=== PATIENT | female | born 1970 | race Caucasian/White ===

== ENCOUNTER → 2018-01-27 16:43 | Outpatient (CLI) | payer OTHER, SELFPAY ==
[2018-01-30 09:42] LABS: HPV APTIMA, High Risk Negative (Negative)
== END ==
PROVIDERS: Family Provider Family Medicine; PCP Family Medicine; Referring Provider Nurse Practitioner Women's Health; Visit Provider Nurse Practitioner Women's Health
DX: Z12.4 Encounter for screening for malignant neoplasm of cervix (principal)
CPT/HCPCS: 87624; 88175; G0145

== ENCOUNTER → 2018-03-04 07:00 | Outpatient (CLI) | payer OTHER, SELFPAY ==
--- NOTE | 2018-03-04 07:03 | BI_ITS ---
MAMMOGRAPHY - BILATERAL SCREENING REASON FOR EXAM: Female, 47 years old. Routine annual screening examination. PERTINENT HISTORY: Mother with breast cancer. Aunt with breast cancer. Left breast implant. Removal of the right breast implant. TECHNIQUE: Digital bilateral breast marco (3D mammographic acquisition) in the CC and MLO projections. 2-D mediolateral oblique (MLO) and craniocaudad (CC) views of both breasts were obtained. CAD: Full Field Digital Mammography with Computer Added Detection was performed. COMPARISON: Comparison is made with prior chest examination dated October 02, 2016. FINDINGS: Breast Composition: The breasts are heterogeneously dense, which may obscure small masses. There are no dominant masses or suspicious calcifications. The left breast implant is unremarkable. No other significant abnormalities are identified. There has been no significant change since the prior study. BI/SCREENING MAMM (CAD), BILAT IMPRESSION: Stable bilateral screening mammogram. Stable left breast implant. Yearly follow-up mammogram recommended. (A) ASSESSMENT CATEGORY: BIRADS Category 2: Benign. A letter regarding these results will be sent to the patient by the facility within 30 days. Approximately 10% of breast cancers are not detected by mammography. A normal mammogram should not delay biopsy of a clinically suspicious abnormality. [id number] Electronically Signed: Farhan Luna MD at 10:25 EST Tel [phone], Service support ,
== END ==
PROVIDERS: Family Provider Family Medicine; PCP Family Medicine; Referring Provider Nurse Practitioner Women's Health; Visit Provider Nurse Practitioner Women's Health
DX: Z12.31 Encounter for screening mammogram for malignant neoplasm of breast (principal)
CPT/HCPCS: 77063; 77067

== ENCOUNTER → 2018-06-19 08:34 | Outpatient (CLI) | payer OTHER, SELFPAY ==
[2018-06-17 18:04] VITALS: BMI 31.0
[2018-06-19 09:06] LABS: Absolute Lymphocyte Count 2.53 X10^3/ul (0.83-4.51); Absolute Neutrophil Count 4.2 X10^3/uL (2.0-7.7); Basophil# 0.04 X10^3/uL; Basophil% 0.5 % (0-1); Eosinophil# 0.19 X10^3/uL; Eosinophils% 2.5 % (0-5); Hematocrit 43.6 % (37-47); Lymphocyte # 2.53 X10^3/ul (4.0); Lymphocyte % 33.6 % (19-41); Mean Corp Hgb Conc 32.1 g/gl (32-36); Mean Corpuscular Volume 84.2 fL (81-99); Mean Platelet Vol. 9.5 fl (6.2-12.0); Monocyte# 0.52 X10^3/uL; Monocyte% 6.9 % (0-10); Neutrophil # 4.23 X10^3/uL (2.7-7.7); Neutrophil % 56.2 % (47-70); POSITIVE COUNT NO; POSITIVE DIFFERENTIAL NO; POSITIVE MORPHOLOGY NO; Platelet Count 268 K/mm3 (150-450); RBC Distribution Width CV 14.1 % (11.6-14.6); RBC Distribution Width SD 43.4 fl (35.1-43.9); Red Blood Count 5.18 M/mm3 (4.2-5.4); White Blood Count 7.5 K/mm3 (4.4-11.0)
[2018-06-19 09:40] LABS: ALB/GLOB Ratio 1.1 RATIO (0.9-2.4); AST(SGOT) 20 U/L (15-37); Alanine Aminotransfer ALT/SGPT 35 U/L (13-56); Alkaline Phosphatase 71 U/L (45-117); Anion Gap 5 (5-15); BUN 13 mg/dL (7-18); BUN/Creat Ratio 14.4 RATIO (10-20); Calcium,Total 8.7 mg/dL (8.5-10.1); Chloride 104 mmol/L (98-107); Cholesterol 181 mg/dL (200); EST Glomerular Filtration Rate 71 mL/min (>60); Est Glom Filt Rate - Afr Amer 85 mL/min (>60); Globulin 3.7 g/dL (2.2-4.2); Glucose 99 mg/dL (74-106); High Density Lipoprotein 49 mg/dL; Potassium 4.4 mmol/L (3.5-5.1); Protein, Total 7.7 g/dL (6.4-8.2); Sodium Level 136 mmol/L (136-145); Triglycerides 103 mg/dL; Very Low Density Lipoprotein 21 mg/dL (5-40)
== END ==
PROVIDERS: Family Provider Internal Medicine; PCP Internal Medicine; Referring Provider Internal Medicine; Visit Provider Internal Medicine
DX: I10 Essential (primary) hypertension (principal); R53.81 Other malaise; R53.83 Other fatigue
CPT/HCPCS: 36415; 80053; 80061; 85025

== ENCOUNTER → 2018-06-29 07:59 | Outpatient (CLI) | payer OTHER, SELFPAY ==
[2018-06-17 18:04] VITALS: BMI 31.0
--- NOTE | 2018-06-29 08:04 | US_ITS ---
STUDY: THYROID ULTRASOUND REASON FOR EXAM: Female, 48 years old. Nodule TECHNIQUE: Ultrasound evaluation of the thyroid was performed with real-time and static bach-scale imaging. COMPARISON: 2014 FINDINGS: RIGHT LOBE: The right lobe of the thyroid gland measures 5.4 x 1.4 x 1.4 cm. There is a homogeneous echotexture. There is a new 4 mm solid nodule. LEFT LOBE: The left lobe of the thyroid gland measures 5.0 x 1.6 x 1.6 cm. There is a homogeneous echotexture. There are no demonstrated solid, cystic or complex lesions. ISTHMUS: The isthmus measures 0.5 cm. There is a 1.3 x 0.9 x 0.7 cm isthmus nodule. The regional lymph nodes are normal. US/Thyroid IMPRESSION: New 4 mm solid nodule in the right thyroid lobe. Stable 1.3 cm isthmus nodule Previously noted nodule in the left thyroid lobe not identified Borderline thyromegaly Six-month follow-up recommended to assure stability, however, if there is clinical concern about the new nodule in the right thyroid lobe, a thyroid uptake study could be performed to assess uptake characteristics. Electronically Signed: Pollo Cortes MD at 19:20 EDT , Service support ,
== END ==
PROVIDERS: Family Provider Internal Medicine; PCP Internal Medicine; Referring Provider Internal Medicine; Visit Provider Internal Medicine
DX: E04.1 Nontoxic single thyroid nodule (principal)
CPT/HCPCS: 76536

== ENCOUNTER → 2018-07-03 09:10 | Outpatient (CLI) | payer OTHER, SELFPAY ==
[2018-06-17 18:04] VITALS: BMI 31.0
[2018-07-03 10:56] LABS: T4 Free Direct 1.14 ng/dL (0.76-1.46); Thyroid Stim Hormone (TSH) 1.56 uIU/mL (0.358-3.74)
== END ==
PROVIDERS: Family Provider Internal Medicine; PCP Internal Medicine; Referring Provider Internal Medicine; Visit Provider Internal Medicine
DX: E04.1 Nontoxic single thyroid nodule (principal)
CPT/HCPCS: 36415; 84439; 84443

== ENCOUNTER → 2018-09-25 10:33 | Outpatient (CLI) | payer OTHER, SELFPAY ==
[2018-09-09 17:35] VITALS: BMI 30.9
[2018-09-25 13:05] LABS: Anion Gap 12 (5-15); BUN 21 mg/dL (7-18); BUN/Creat Ratio 21.9 RATIO (10-20); Calcium,Total 9.3 mg/dL (8.5-10.1); Chloride 100 mmol/L (98-107); Creatinine, Serum 0.96 mg/dL (0.55-1.02); EST Glomerular Filtration Rate 66 mL/min (>60); Est Glom Filt Rate - Afr Amer 80 mL/min (>60); Glucose 126 mg/dL (74-106); Sodium Level 138 mmol/L (136-145)
== END ==
PROVIDERS: Family Provider Internal Medicine; PCP Internal Medicine; Visit Provider Internal Medicine
DX: I10 Essential (primary) hypertension (principal)
CPT/HCPCS: 36415; 80048

== ENCOUNTER → 2018-10-09 08:29 | Outpatient (CLI) | payer OTHER, SELFPAY ==
[2018-09-09 17:35] VITALS: BMI 30.9
[2018-10-09 09:23] LABS: Potassium 4.1 mmol/L (3.5-5.1)
== END ==
PROVIDERS: Family Provider Internal Medicine; PCP Internal Medicine; Referring Provider Family Medicine; Visit Provider Family Medicine
DX: E87.6 Hypokalemia (principal)
CPT/HCPCS: 36415; 84132

== ENCOUNTER 2018-12-28 07:47 | Day surgery (SDC) | payer OTHER, SELFPAY ==
[2018-12-07 08:08] VITALS: BMI 30.9
[2018-12-16 16:34] VITALS: BMI 30.9
[2018-12-28 08:08] VITALS: BP 138/74; PULSE 61; RESP 16; TEMP 37.1; O2SAT 99; BMI 29.7
[2018-12-28] MEDS: Lactated Ringers 1,000 ML 100 ML IV (08:26)
[2018-12-28 08:35] LABS: Internal QC Validated? YES +Cl - CLEAR BKGD
[2018-12-28 08:40] LABS: Pregnancy, Serum, hCG Quali. NEGATIVE Negative
--- NOTE | 2018-12-28 08:48 | HP.PCM_ITS ---
History of Present Illness Date of Admission: 12/28/18 The patient is a 48 year old F presents for screening colonoscopy. Patient had a colonoscopy 8 years ago which was negative per patient. Patient's father was diagnosed with colon cancer at age 48 and patient's sister had a polyp at age 35. Patient denies any abdominal pain nausea vomiting or reflux. Patient does have bowel movements daily denies any blood. Past Medical/Surgical History - Planned Operation Planned Operative Procedure/s: COLONOSCOPY Date of Operative Procedure: 12/28/18 Permit Signed: Yes S.O.S: No Is This Patient Having a Total Joint: No - Previous Hospitalizations/Surgeries HX Hospitalizations: No HX of Surgeries: GALLBLADDER. BREAST AUGMENTATION Any Problems With Anesthesia: No You/Your Family Experience Fever (Hyperthermia) With Anes: No Cholinesterase deficiency: No - Cardiovascular Hx Chest Pain within Last 2 months: No Hx of Irregular Heartbeat and/or Afib: No Hx Heart Attack: No Hx Congestive Heart Failure: No Hx Rheumatic Fever: No Hx Hypertension: Yes - ON MED, WHITE COAT SYN. Hx Internal Defibrillator: No Hx Pacemaker: No Hx Cardiac Catheterization: No Hx Cardiac Surgery/Stents/Etc.: No Hx Stress Test: Yes - STRESS ECHO 06/2016 HX Edema: No Hx Pain in Legs when Walking/Leg Cramps: No - Respiratory Chronic Cough: No HX of Shortness of Breath: No Hoarseness: No Hx Chronic Obstructive Pulmonary Disease (COPD): No Hx Asthma: No Hx Emphysema: No Hx Sleep Apnea: No Hx Oxygen Use at Home: No Hx Respiratory Tract Infection/Cold (presently): No Do You Snore Loudly (louder than talking or can be heard): Yes Do You Often Feel Tired/ Fatigued/ Sleepy Dring Daytime?: No Has Anyone Observed You Stop Breathing During Sleep?: No Result (for STOP score): Positive Hx Smoking: No Smoking Status: Never smoker - Gastrointestinal Hx Gastroesophageal Reflux: No Hx Gastrointestinal Disorders: No Hx Gastrointestinal Bleed: No Hx Ulcer: No Hx Hiatal Hernia: No Difficulty Chewing/Swallowing: No Recent Onset of Swallowing Problems: No Special diet followed at home: No Hx Unplanned Weight Loss of 20#: No HX Unplanned Weight Gain of 20#: No - Neurological Hx Seizures: No HX Syncope/Blackout Spells/Unconsciousness: No Hx CVA/Stroke: No Hx Transient Ischemic Attacks (TIA): No Hx Multiple Sclerosis: No Hx Parkinson's Disease: No Hx Head/Neck Injury: Yes - HX OF NECK PAIN Hx Headaches: - STRESS SHEA Hx Back Injury/Pain: No Recent Onset of Speech Difficulty: No Restless Legs: No Does patient have nerve stimulator: No - Blood Disorder Hx Leukemia: No Bleeding Tendencies: No Hx Deep Vein Thrombosis: No Hx High Cholesterol: No Blood Transmitted Disease: No Hx Hepatitis: No Hx Cirrhosis: No Hx Anemia: No Hx Blood Disorders: No - Reproduction : No Is Patient Lactating: No Hx Hysterectomy: No Hx Tubal Ligation: No Are You Post Menopause: No Pt Instructed Not To Have Any Sex From Now Until Surgery: No - Genitourinary Hx Renal Disease: No - Musculoskeletal Hx Arthritis: Yes Hx Rheumatoid Arthritis: No Hx Gout: No Recent Onset of an Orthopedic Problem: No - Endocrine Hx Diabetes: No Thyroid Disease: No - NODULE Hx Steroid Therapy: No - Psycho/Social Hx Substance Use: No Hx Alcohol Use: Yes - SOCIAL Hx Anxiety: No Hx Depression: No Mental Illness: No Hx Dementia: No - Miscellaneous Hx Cancer: No Recent Exposure to Contagious Disease: No Active MRSA: No Hx of C-Diff: No Any Loose Teeth: No Allergies ciprofloxacin [From Cipro] Allergy (Severe, Verified 12/22/18 11:06) Unknown Penicillins Allergy (Severe, Verified 12/22/18 11:06) Unknown - Discharge Is Pt Admitted From a [facility], or a Jail: No Who Could Help: After D/C, Where Do you Plan to Go: Return Home - Physical Exam General: Alert, Oriented x3, Cooperative, No apparent distress HEENT: Atraumatic Lungs: Normal air movement Cardiovascular: Regular rate Abdomen: Soft, Non Tender, Non-Distended Extremities: No clubbing, No cyanosis, No edema Neurological: Cranial nerves II-XII grossly intact Psych/Mental Status: Normal Affect Vital Signs Temp Pulse Resp BP Pulse Ox 98.7 F 61 16 138/74 H 99 12/28/18 08:08 12/28/18 08:08 12/28/18 08:08 12/28/18 08:08 12/28/18 08:08 Oxygen Delivery Method Room Air Weight: 173 lb 1.006 oz Body Mass Index (BMI) 29.7 Laboratory Tests Past 24 Hrs 12/28/18 08:20 Serum , Qual NEGATIVE Assessment/Plan All Active Problems Maxillary sinusitis, acute (Acute) IUD (intrauterine device) in place (Acute) 48-year-old female for screening for colon cancer due to family history of colon cancer?father at age 48 dx Surgery Risks - Colonoscopy I discussed with the patient the risks of the procedure: Yes Risks Include but are not Limited To: Risks include but are not limited to: Bleeding, perforation requiring further surgery, inability to complete colonoscopy requiring barium enema. She had no further questions this time.
[2018-12-28 09:28] VITALS: BP 131/83; BP 138/74; PULSE 61; RESP 16; TEMP 37.1; O2SAT 94
[2018-12-28 09:30] VITALS: BP 130/88; BP 138/74; PULSE 90; RESP 16; O2SAT 98
[2018-12-28 09:35] VITALS: BP 123/93; BP 138/74; PULSE 86; RESP 16; O2SAT 97
[2018-12-28 09:40] VITALS: BP 129/90; BP 138/74; PULSE 73; RESP 16; TEMP 36.2; O2SAT 98
[2018-12-28 10:35] VITALS: BP 138/74
--- NOTE | 2018-12-29 09:49 | OP.ENDO_ITS ---
12/29/2018 Nazario Schulte MD [address] [place] [address] [place] [address] Re : Colonoscopy procedure for Sherley Regina Dear Dr. Schulte This procedure was performed on Friday, December 28, 2018. My impressions and recommendations are as follows: Impressions : - The entire examined colon is normal on direct and retroflexion views. - No specimens collected. Recommendations : - Discharge patient to home. - Resume previous diet. - Continue present medications. - Repeat colonoscopy in 5 years for screening purposes, due to FH of colon cancer. My findings are described in the full procedure note, which is enclosed. If I can be of further assistance, please feel free to contact me at Doctor phone number(s): , Work: . Sincerely, MD Diana Goldsmith MD 12/28/2018 9:29:00 AM This report has been signed electronically.
== END 2018-12-28 10:36 | disposition home or self-care (01) ==
LOC: EN 07:48 → AC 07:49
PROVIDERS: Anesthesiology; Family Provider Internal Medicine; PCP Internal Medicine; Referring Provider Surgery; Visit Provider Surgery
PROC: 0DJD8ZZ Inspection of Lower Intestinal Tract, Via Natural or Artificial Opening Endoscopic (ICD-10-PCS; CPT 45378; principal; 2018-12-28 08:40)
DX: Z12.11 Encounter for screening for malignant neoplasm of colon (principal); Z80.0 Family history of malignant neoplasm of digestive organs
CPT/HCPCS: 45378; 36415; 84703; J7120

== ENCOUNTER → 2019-04-22 10:36 | Outpatient (CLI) | payer OTHER, SELFPAY ==
[2019-02-19 07:11] VITALS: BMI 30.4
[2019-04-22 11:05] LABS: Absolute Lymphocyte Count 2.97 X10^3/uL (0.83-4.51); Absolute Neutrophil Count 3.6 X10^3/uL (2.0-7.7); Basophil# 0.06 X10^3/uL; Basophil% 0.8 % (0-1); Eosinophil# 0.39 X10^3/uL; Eosinophils% 5.1 % (0-5); Hematocrit 44.5 % (37-47); Hemoglobin 14.5 g/dL (12.0-15.0); Lymphocyte # 2.97 X10^3/ul (4.0); Lymphocyte % 38.9 % (19-41); Mean Corp Hgb Conc 32.6 g/dL (32-36); Mean Corpuscular Hgb 26.9 pg (27.0-32.0); Mean Corpuscular Volume 82.6 fL (81-99); Mean Platelet Vol. 9.2 fl (6.2-12.0); Monocyte% 7.9 % (0-10); NRBC Flagged by Analyzer 0 % (0-5); Neutrophil # 3.59 X10^3/uL (2.7-7.7); Neutrophil % 46.9 % (47-70); Platelet Count 267 K/mm3 (150-450); RBC Distribution Width CV 13.4 % (11.6-14.6); RBC Distribution Width SD 40.3 fl (35.1-43.9); Red Blood Count 5.39 M/mm3 (4.2-5.4); White Blood Count 7.6 K/mm3 (4.4-11.0)
[2019-04-22 11:43] LABS: AST(SGOT) 15 U/L (15-37); Alanine Aminotransfer ALT/SGPT 32 U/L (13-56); Albumin, Serum 4.2 g/dL (3.2-5.0); Alkaline Phosphatase 78 U/L (45-117); Anion Gap 6 (5-15); BUN 16 mg/dL (7-18); BUN/Creat Ratio 16.2 RATIO (10-20); Calcium,Total 9.6 mg/dL (8.5-10.1); Chloride 105 mmol/L (98-107); Creatinine, Serum 0.98 mg/dL (0.55-1.02); EST Glomerular Filtration Rate 64 mL/min (>60); Est Glom Filt Rate - Afr Amer 77 mL/min (>60); Glucose 102 mg/dL (74-106); Potassium 4.2 mmol/L (3.5-5.1); Protein, Total 8.2 g/dL (6.4-8.2); Sodium Level 139 mmol/L (136-145)
== END ==
PROVIDERS: Family Provider Internal Medicine; PCP Internal Medicine; Referring Provider Nurse Practitioner Family; Visit Provider Nurse Practitioner Family
DX: B35.1 Tinea unguium (principal)
CPT/HCPCS: 36415; 80053; 85025

== ENCOUNTER → 2019-05-03 07:37 | Outpatient (CLI) | payer OTHER, SELFPAY ==
[2019-02-19 07:11] VITALS: BMI 30.4
--- NOTE | 2019-05-03 07:38 | US_ITS ---
STUDY: THYROID ULTRASOUND REASON FOR EXAM: Female, 48 years old. Nodules TECHNIQUE: Ultrasound evaluation of the thyroid was performed with real-time and static bach-scale imaging. COMPARISON: Comparison is made with prior study dated June 29, 2018. FINDINGS: RIGHT LOBE: The right lobe of the thyroid gland measures 4.8 cm x 1.5 cm x 2.1 cm. There is a homogeneous echotexture. There is a 3 mm x 4 mm x 2 mm hypoechoic solid nodule in the midportion of the right lobe. This also evidence of a similar-appearing nodule measuring 4 mm x 4 mm x 2 mm in the mid right lobe of the thyroid. LEFT LOBE: The left lobe of the thyroid gland measures 4.6 cm x 1.4 cm x 1.6 cm. There is a homogeneous echotexture. There is a 6 mm x 6 mm x 4 mm hypoechoic nodule in the left side of the isthmus. Adjacent to this, there is a 1.2 cm x 0.9 cm x 0.6 cm complex solid and cystic nodule along the medial aspect of the left lobe of the thyroid anteriorly adjacent to the isthmus. ISTHMUS: The isthmus measures 6.0 mm. The regional lymph nodes are normal. US/Thyroid IMPRESSION: Bilateral thyroid nodules as described. Dominant 1.2 cm x 0.9 cm x 0.6 cm complex solid cystic nodule along the anterior left medial aspect of the left lobe of the thyroid adjacent to the isthmus. Electronically Signed: Farhan Luna, at 12:32 EST , Service support ,
--- NOTE | 2019-05-03 07:41 | BI_ITS ---
MAMMOGRAPHY - BILATERAL SCREENING REASON FOR EXAM: Female, 48 years old. Routine annual screening examination. PERTINENT HISTORY: Mother with breast cancer. Aunt with breast cancer. TECHNIQUE: Digital bilateral breast jessee (3D mammographic acquisition) in the CC and MLO projections. 2-D mediolateral oblique (MLO) and craniocaudad (CC) views of both breasts were obtained. CAD: Full Field Digital Mammography with Computer Added Detection was performed. COMPARISON: Comparison is made with prior examination dated March 04, 2018. FINDINGS: Breast Composition: The breasts are heterogeneously dense, which may obscure small masses. There are no dominant masses or suspicious calcifications. There is a 6.6 mm x 8.6 mm well-defined nodule in the central lateral portion of the right breast. Correlation with ultrasound is recommended. Stable appearance of the left breast implant. No other significant abnormalities are identified. BI/SCREEN MAMM (CAD) W/JESSEE BILAT IMPRESSION: 6.6 mm x 8.6 mm well-defined nodule in the central lateral portion of the right breast. Correlation with ultrasound is recommended. ASSESSMENT CATEGORY: BIRADS Category 0: Incomplete. Need additional imaging evaluation. A letter regarding these results will be sent to the patient by the facility within 30 days. Approximately 10% of breast cancers are not detected by mammography. A normal mammogram should not delay biopsy of a clinically suspicious abnormality. [id number] Electronically Signed: Farhan Luna, at 8:52 EST , Service support ,
== END ==
PROVIDERS: Family Provider Internal Medicine; PCP Internal Medicine; Referring Provider Nurse Practitioner Women's Health; Visit Provider Nurse Practitioner Women's Health
DX: Z12.31 Encounter for screening mammogram for malignant neoplasm of breast (principal); N63.10 Unspecified lump in the right breast, unspecified quadrant; Z80.3 Family history of malignant neoplasm of breast; E04.1 Nontoxic single thyroid nodule
CPT/HCPCS: 76536; 77063; 77067

== ENCOUNTER → 2019-05-04 13:55 | Outpatient (CLI) | payer OTHER, SELFPAY ==
[2019-02-19 07:11] VITALS: BMI 30.4
--- NOTE | 2019-05-04 13:55 | US_ITS ---
STUDY: ULTRASOUND BREAST - RIGHT REASON FOR EXAM: Female, 48 years old. Abnormal screening mammogram. TECHNIQUE: Axial and longitudinal images of the RIGHT breast were performed with a high resolution ultrasound transducer. # OF IMAGES: 54 COMPARISON: Comparison is made with prior mammogram dated May 03, 2019. FINDINGS: RIGHT Breast: There is a 6 mm x 7 mm x 5 mm cyst at the 9:00 position of the breast at 4 cm from the nipple. There is a 9 mm x 6 mm x 3 mm cyst with a septation at the 11:00 position the breast at 4 cm from nipple. Adjacent to this, there is a 4 mm x 5 mm x 3 mm hypoechoic nodule. This may represent a cyst although this too small for adequate assessment. A repeat sonogram in 4 months is recommended. US/Breast Limited Unilateral IMPRESSION: 4 mm x 5 mm x 3 mm hypoechoic nodule at the 11:00 position of the breast at 4 cm from nipple. This most likely represents a small cyst. A four-month follow-up examination is recommended. ASSESSMENT CATEGORY: BIRADS Category 3: Probably Benign - Short-Interval Follow-up Suggested. A letter regarding these results will be sent to the patient by the facility within 30 days. Electronically Signed: Farhan Luna, at 15:22 EST , Service support ,
== END ==
PROVIDERS: PCP Internal Medicine; Referring Provider Nurse Practitioner Women's Health; Visit Provider Nurse Practitioner Women's Health
DX: N63.11 Unspecified lump in the right breast, upper outer quadrant (principal)
CPT/HCPCS: 76642

== ENCOUNTER → 2019-05-11 14:00 | Outpatient (CLI) | payer OTHER, SELFPAY ==
[2019-02-19 07:11] VITALS: BMI 30.4
[2019-05-11 16:29] LABS: Follicle Stimulating Hormone 83.4 mIU/mL; T4 Free Direct 1.24 ng/dL (0.76-1.46); Thyroid Stim Hormone (TSH) 1.18 uIU/mL (0.358-3.74)
== END ==
PROVIDERS: PCP Internal Medicine; Referring Provider Nurse Practitioner Women's Health; Visit Provider Nurse Practitioner Women's Health
DX: R23.2 Flushing (principal)
CPT/HCPCS: 36415; 83001; 84439; 84443

== ENCOUNTER → 2019-06-21 08:28 | Outpatient (CLI) | payer OTHER, SELFPAY ==
[2019-06-07 08:11] VITALS: BMI 30.4
[2019-06-21 09:29] LABS: Anion Gap 9 (5-15); BUN 21 mg/dL (7-18); BUN/Creat Ratio 21.3 RATIO (10-20); Calcium,Total 9.4 mg/dL (8.5-10.1); Chloride 101 mmol/L (98-107); Cholesterol 208 mg/dL (200); Creatinine, Serum 0.99 mg/dL (0.55-1.02); EST Glomerular Filtration Rate 63 mL/min (>60); Est Glom Filt Rate - Afr Amer 77 mL/min (>60); Glucose 114 mg/dL (74-106); High Density Lipoprotein 53 mg/dL; Potassium 3.5 mmol/L (3.5-5.1); Sodium Level 137 mmol/L (136-145); Triglycerides 121 mg/dL; Very Low Density Lipoprotein 24 mg/dL (5-40)
== END ==
PROVIDERS: PCP Internal Medicine; Referring Provider Internal Medicine; Visit Provider Internal Medicine
DX: I10 Essential (primary) hypertension (principal)
CPT/HCPCS: 36415; 80048; 80061

== ENCOUNTER → 2019-07-01 06:52 | Outpatient (CLI) | payer OTHER, SELFPAY ==
[2019-06-07 08:11] VITALS: BMI 30.4
--- NOTE | 2019-07-01 06:54 | CT_ITS ---
STUDY: CT BRAIN AND SINUSES WITHOUT CONTRAST REASON FOR EXAM: Female, 49 years old. Sinusitis. RADIATION DOSAGE (If Supplied By Facility): CTDIvol = ( 33.06 ) mGy, DLP = ( 813.19 ) mGycm TECHNIQUE: Transaxial CT imaging of the brain was performed without administration of contrast. Individualized dose optimization techniques were used for this CT. COMPARISON: No relevant priors. FINDINGS: CT BRAIN Normal soft tissue structures. Normal calvarium. Normal size ventricles and extra-axial spaces for the patient''s age. Normal white matter tracts of the cerebral hemispheres. Normal basal ganglia and thalami. Normal brainstem. Normal cerebellum. Portions of the posterior parietal lobes, temporal lobes, occipital lobes and posterior fossa are not included. There is no intracranial hemorrhage. There are no findings of an acute ischemic infarction. CT SINUSES Post Surgical Changes: None. Frontal Sinus and Recess: Normal aeration without mucosal inflammatory disease. Ethmoidal Sinuses: Normal aeration without mucosal inflammatory disease. Maxillary Sinuses: Normal aeration without mucosal inflammatory disease. Ostiomeatal Complex: Clear. Sphenoid Sinus: Normal aeration without mucosal inflammatory disease. Sphenoethmoidal Recess: Clear. Bilateral aurora bullosae. Nasal Septum: Slightly deviated to the right. Nasal Airway: Clear. Cribiform Plate / Anterior Cranial Fossa: Normal. Orbits: Normal. Mastoid air cells well aerated. CT/Sinus/Facial Bone IMPRESSION: Paranasal sinuses are well aerated. Normal visualized portion of the brain as above. Electronically Signed: Kenrick Machado MD at 7:48 EDT , Service support ,
== END ==
PROVIDERS: PCP Internal Medicine; Referring Provider Otolaryngology; Visit Provider Otolaryngology
DX: J32.9 Chronic sinusitis, unspecified (principal)
CPT/HCPCS: 70486

== ENCOUNTER → 2019-08-04 07:57 | Outpatient (CLI) | payer OTHER, SELFPAY ==
[2019-06-07 08:11] VITALS: BMI 30.4
--- NOTE | 2019-08-04 07:57 | US_ITS ---
STUDY: ULTRASOUND BREAST - RIGHT REASON FOR EXAM: Female, 49 years old. 4 month follow-up examination. TECHNIQUE: Axial and longitudinal images of the RIGHT breast were performed with a high resolution ultrasound transducer. # OF IMAGES: 26 COMPARISON: Comparison is made with prior ultrasound of the right breast dated May 04, 2019. FINDINGS: RIGHT Breast: There is a 6 mm x 7 mm x 6 mm cyst at the 9:00 position of the breast at 4 cm from nipple. There is a 6 mm x 7 mm x 4 mm cyst with a septation at the 11:00 position of the breast at 4 cm from the nipple. Adjacent to this, there is a 5 mm x 5 mm x 3 mm cyst at the 11:00 position of the breast at 4 cm from nipple. US/Breast Limited Unilateral IMPRESSION: Stable examination. Routine mammographic follow-up is recommended. ASSESSMENT CATEGORY: BIRADS Category 2: Benign. A letter regarding these results will be sent to the patient by the facility within 30 days. Electronically Signed: Farhan Luna, at 9:54 EDT , Service support ,
== END ==
PROVIDERS: PCP Internal Medicine; Referring Provider Nurse Practitioner Women's Health; Visit Provider Nurse Practitioner Women's Health
DX: N60.01 Solitary cyst of right breast (principal)
CPT/HCPCS: 76642

== ENCOUNTER → 2020-02-21 08:29 | Outpatient (CLI) | payer OTHER, SELFPAY ==
[2019-12-23 12:28] VITALS: BMI 30.4
[2020-02-21 09:28] LABS: Anion Gap 8 (5-15); BUN 18 mg/dL (7-18); BUN/Creat Ratio 19.8 RATIO (10-20); Calcium,Total 9.6 mg/dL (8.5-10.1); Chloride 104 mmol/L (98-107); Creatinine, Serum 0.91 mg/dL (0.55-1.02); EST Glomerular Filtration Rate 70 mL/min (>60); Est Glom Filt Rate - Afr Amer 84 mL/min (>60); Glucose 108 mg/dL (74-106); Potassium 4.2 mmol/L (3.5-5.1); Sodium Level 138 mmol/L (136-145)
[2020-02-21 09:37] LABS: Hemoglobin A1c 6.3 % (3.8-5.6)
== END ==
PROVIDERS: PCP Internal Medicine; Referring Provider Internal Medicine; Visit Provider Internal Medicine
DX: I10 Essential (primary) hypertension (principal); R73.9 Hyperglycemia, unspecified
CPT/HCPCS: 36415; 80048; 83036

== ENCOUNTER → 2020-07-27 09:19 | Outpatient (CLI) | payer OTHER, SELFPAY ==
[2019-12-23 12:28] VITALS: BMI 30.4
--- NOTE | 2020-07-27 09:23 | US_ITS ---
STUDY: ULTRASOUND BREAST - RIGHT REASON FOR EXAM: Female, 50 years old. Palpable lump in the right breast. TECHNIQUE: Axial and longitudinal images of the RIGHT breast were performed with a high resolution ultrasound transducer. # OF IMAGES: 15 COMPARISON: Comparison is made with prior mammogram done earlier today as well as prior ultrasound of the right breast dated 08/04/2019. FINDINGS: RIGHT Breast: There is a 5 mm x 5 mm x 4 mm cyst at the 11 o''clock position of the breast corresponding to the palpable abnormality. There is also evidence of a 5 mm x 5 mm x 5 mm cyst at the 9 o''clock position of the breasts. US/Breast Limited Unilateral IMPRESSION: Small cysts seen at the 9 o''clock and 11 o''clock position of the breasts. ASSESSMENT CATEGORY: BIRADS Category 2: Benign. A letter regarding these results will be sent to the patient by the facility within 30 days. Electronically Signed: Farhan Luna MD at 15:37 EDT , Service support ,
--- NOTE | 2020-07-27 09:23 | BI_ITS ---
MAMMOGRAPHY - BILATERAL DIAGNOSTIC REASON FOR EXAM: Female, 50 years old. Right breast lump. PERTINENT HISTORY: Mother with breast cancer. Aunt with breast cancer. Left breast implant. TECHNIQUE: Digital bilateral breast marco (3D mammographic acquisition) in the CC and MLO projections. 2-D mediolateral oblique (MLO) and craniocaudad (CC) views of both breasts were obtained. CAD: Full Field Digital Mammography with Computer Added Detection was performed. COMPARISON: Comparison is made with prior study dated 05/03/2019 and 03/04/2018. FINDINGS: Breast Composition: The breasts are heterogeneously dense, which may obscure small masses. There are no dominant masses or suspicious calcifications. Stable 6.6 mm x 8 mm well-defined nodule in the central lateral portion of the right breast. Stable appearance of the left breast implant. No other significant abnormalities are identified. There has been no significant change since the prior study. BI/DIAG MAMM W/CAD, BILAT IMPRESSION: Stable bilateral diagnostic mammogram. With the patient''s history of palpable lump in the upper-outer quadrant of the right breast, correlation with ultrasound is recommended. ASSESSMENT CATEGORY: BIRADS Category 0: Incomplete. Need additional imaging evaluation. A letter regarding these results will be sent to the patient by the facility within 30 days. Approximately 10% of breast cancers are not detected by mammography. A normal mammogram should not delay biopsy of a clinically suspicious abnormality. Electronically Signed: Farhan Luna MD at 10:29 EDT , Service support ,
== END ==
PROVIDERS: PCP Internal Medicine; Referring Provider Nurse Practitioner Women's Health; Visit Provider Nurse Practitioner Women's Health
DX: N60.11 Diffuse cystic mastopathy of right breast (principal); Z80.3 Family history of malignant neoplasm of breast
CPT/HCPCS: 76642; 77062; 77066; G0279

== ENCOUNTER → 2020-10-12 15:55 | Outpatient (CLI) | payer OTHER, SELFPAY ==
[2020-08-02 08:11] VITALS: BMI 30.5
[2020-10-12 16:54] LABS: D-Dimer Quantitative (DVT/PE) 0.37 FEU/ug/m (0.27-0.49)
[2020-10-12 17:06] LABS: Hemoglobin A1c 6.1 % (3.8-5.6)
== END ==
PROVIDERS: PCP Internal Medicine; Visit Provider Internal Medicine Cardiovascular Disease
DX: R06.02 Shortness of breath (principal); R07.1 Chest pain on breathing; R73.03 Prediabetes
CPT/HCPCS: 36415; 83036; 85379

== ENCOUNTER → 2020-11-23 08:19 | Outpatient (CLI) | payer OTHER, SELFPAY ==
[2020-10-27 08:09] VITALS: BMI 30.5
[2020-11-23 08:56] LABS: Absolute Lymphocyte Count 2.56 X10^3/uL (0.83-4.51); Absolute Neutrophil Count 3.1 X10^3/uL (2.0-7.7); Basophil# 0.06 X10^3/uL; Basophil% 0.9 % (0-1); Eosinophil# 0.23 X10^3/uL; Eosinophils% 3.5 % (0-5); Hematocrit 42.3 % (37-47); Hemoglobin 13.9 g/dL (12.0-15.0); Lymphocyte # 2.56 X10^3/ul (0.83-4.51); Lymphocyte % 39.3 % (19-41); Mean Corp Hgb Conc 32.9 g/dL (32-36); Mean Corpuscular Hgb 27.3 pg (27.0-32.0); Mean Corpuscular Volume 82.9 fL (81-99); Mean Platelet Vol. 9.8 fl (6.2-12.0); Monocyte# 0.55 X10^3/uL; Monocyte% 8.4 % (0-10); NRBC Flagged by Analyzer 0 % (0-5); Neutrophil # 3.11 X10^3/uL (2.7-7.7); Neutrophil % 47.7 % (47-70); Platelet Count 276 K/mm3 (150-450); RBC Distribution Width CV 13.3 % (11.6-14.6); RBC Distribution Width SD 40.2 fl (35.1-43.9); White Blood Count 6.5 K/mm3 (4.4-11.0)
[2020-11-23 09:22] LABS: ALB/GLOB Ratio 1.1 RATIO (0.9-2.4); AST(SGOT) 17 U/L (15-37); Alanine Aminotransfer ALT/SGPT 32 U/L (13-56); Albumin, Serum 4.1 g/dL (3.2-5.0); Alkaline Phosphatase 72 U/L (45-117); Anion Gap 7 (5-15); BUN 18 mg/dL (7-18); BUN/Creat Ratio 18.7 RATIO (10-20); Calcium,Total 9.4 mg/dL (8.5-10.1); Chloride 102 mmol/L (98-107); Cholesterol 176 mg/dL (200); Creatinine, Serum 0.96 mg/dL (0.55-1.02); EST Glomerular Filtration Rate 65 mL/min (>60); Est Glom Filt Rate - Afr Amer 78 mL/min (>60); Globulin 3.8 g/dL (2.2-4.2); Glucose 108 mg/dL (74-106); High Density Lipoprotein 44 mg/dL; Potassium 4.2 mmol/L (3.5-5.1); Protein, Total 7.9 g/dL (6.4-8.2); Sodium Level 136 mmol/L (136-145); Triglycerides 76 mg/dL; Very Low Density Lipoprotein 15 mg/dL (5-40)
== END ==
PROVIDERS: PCP Internal Medicine; Visit Provider Internal Medicine
DX: I10 Essential (primary) hypertension (principal)
CPT/HCPCS: 36415; 80053; 80061; 85025

== ENCOUNTER → 2021-01-29 12:31 | Outpatient (CLI) | payer OTHER, SELFPAY ==
--- NOTE | 2021-01-29 12:35 | RAD_ITS ---
STUDY: X-RAY - PELVIS AND RIGHT HIP REASON FOR EXAM: Right hip pain for 2 months. TECHNIQUE: 2 views of the pelvis and hip. COMPARISON: None. FINDINGS: There is an intrauterine device. Normal bilateral iliac wings, sacroiliac joints and visualized sacrum. Normal bilateral superior and inferior pubic rami. Normal pubic symphysis. Normal bilateral ischial tuberosities. Normal visualized femoral head. Normal acetabulum. Normal hip joint. RAD/HIP, UNI W/ Pelvis 2-3 Views IMPRESSION: Normal x-ray examination of the right hip. Electronically Signed: John Geronimo MD at 13:35 EDT Tel , Service support ,
== END ==
PROVIDERS: PCP Internal Medicine; Referring Provider Nurse Practitioner Family; Visit Provider Nurse Practitioner Family
DX: M25.551 Pain in right hip (principal)
CPT/HCPCS: 73502

== ENCOUNTER → 2021-08-10 | Outpatient (CLI) | payer OTHER, SELFPAY ==
--- NOTE | 2021-08-10 07:45 | BI_ITS ---
MAMMOGRAPHY - BILATERAL SCREENING REASON FOR EXAM: Female, 51 years old. Routine annual screening examination. PERTINENT HISTORY: Mother with breast cancer. Aunt with breast cancer. Left breast implant. TECHNIQUE: Digital bilateral breast jessee (3D mammographic acquisition) in the CC and MLO projections. 2-D mediolateral oblique (MLO) and craniocaudad (CC) views of both breasts were obtained. CAD: Full Field Digital Mammography with Computer Added Detection was performed. COMPARISON: Comparison is made with prior study dated 07/27/2020 and 05/03/2019. FINDINGS: Breast Composition: The breasts are heterogeneously dense, which may obscure small masses. There are no dominant masses or suspicious calcifications. Stable 6.6 mm x 8 mm nodular density in the central lateral portion of the right breast. Prior sonogram demonstrated this to be a cyst. Stable appearance of the left breast implant. No other significant abnormalities are identified. There has been no significant change since the prior study. BI/SCRN MAMM (CAD)W/JESSEE BILAT IMPRESSION: Stable bilateral screening mammogram. Yearly follow-up mammogram recommended. (A) ASSESSMENT CATEGORY: BIRADS Category 2: Benign. A letter regarding these results will be sent to the patient by the facility within 30 days. Approximately 10% of breast cancers are not detected by mammography. A normal mammogram should not delay biopsy of a clinically suspicious abnormality. [id number] Electronically Signed: Farhan Luna MD at 8:54 EDT ,
== END | disposition home or self-care (01) ==
LOC: OPBI 07:44
PROVIDERS: PCP Internal Medicine; Visit Provider Nurse Practitioner Women's Health
DX: Z12.31 Encounter for screening mammogram for malignant neoplasm of breast (principal)
CPT/HCPCS: 77063; 77067

== ENCOUNTER 2021-11-01 07:30 | Outpatient (RCR) | payer SELFPAY | END 2021-11-01 19:00 | disposition home or self-care (01) | LOC: PT 07:30 | PROVIDERS: PCP Internal Medicine | DX: R69 Illness, unspecified (principal) ==

== ENCOUNTER → 2021-11-22 | Outpatient (CLI) | payer OTHER, SELFPAY ==
[2021-11-22 09:00] LABS: Absolute Lymphocyte Count 2.75 X10^3/uL (0.83-4.51); Absolute Neutrophil Count 3.7 X10^3/uL (2.0-7.7); Basophil# 0.07 X10^3/uL; Basophil% 0.9 % (0-1); Eosinophil# 0.31 X10^3/uL; Eosinophils% 4.1 % (0-5); Hematocrit 44.8 % (37-47); Hemoglobin 14.6 g/dL (12.0-15.0); Lymphocyte # 2.75 X10^3/ul (0.83-4.51); Lymphocyte % 36.7 % (19-41); Mean Corp Hgb Conc 32.6 g/dL (32-36); Mean Platelet Vol. 9.9 fl (6.2-12.0); Monocyte# 0.64 X10^3/uL; Monocyte% 8.5 % (0-10); NRBC Flagged by Analyzer 0 % (0-5); Neutrophil # 3.71 X10^3/uL (2.7-7.7); Neutrophil % 49.5 % (47-70); Platelet Count 301 K/mm3 (150-450); RBC Distribution Width SD 42.1 fl (35.1-43.9); White Blood Count 7.5 K/mm3 (4.4-11.0)
[2021-11-22 09:27] LABS: Hemoglobin A1c 6.1 % (3.8-5.6)
[2021-11-22 09:28] LABS: ALB/GLOB Ratio 1.1 RATIO (0.9-2.4); AST(SGOT) 21 U/L (15-37); Alanine Aminotransfer ALT/SGPT 34 U/L (13-56); Albumin, Serum 4.1 g/dL (3.2-5.0); Alkaline Phosphatase 71 U/L (45-117); Anion Gap 5 (5-15); BUN 21 mg/dL (7-18); BUN/Creat Ratio 21.8 RATIO (10-20); Calcium,Total 9.7 mg/dL (8.5-10.1); Chloride 104 mmol/L (98-107); Cholesterol 204 mg/dL (200); Creatinine, Serum 0.96 mg/dL (0.55-1.02); EST Glomerular Filtration Rate 64 mL/min (>60); Est Glom Filt Rate - Afr Amer 78 mL/min (>60); Globulin 3.8 g/dL (2.2-4.2); Glucose 114 mg/dL (74-106); High Density Lipoprotein 47 mg/dL; Potassium 4.5 mmol/L (3.5-5.1); Protein, Total 7.9 g/dL (6.4-8.2); Sodium Level 137 mmol/L (136-145); Triglycerides 99 mg/dL; Very Low Density Lipoprotein 20 mg/dL (5-40)
== END | disposition home or self-care (01) ==
PROVIDERS: PCP Internal Medicine; Visit Provider Internal Medicine
DX: I10 Essential (primary) hypertension (principal); R73.03 Prediabetes
CPT/HCPCS: 36415; 80053; 80061; 83036; 85025

== ENCOUNTER → 2022-05-14 | Outpatient (CLI) | payer OTHER, SELFPAY ==
[2022-05-20 14:30] LABS: HPV APTIMA, High Risk Negative (Negative)
== END | disposition home or self-care (01) ==
PROVIDERS: PCP Internal Medicine; Visit Provider Nurse Practitioner Women's Health
DX: Z12.4 Encounter for screening for malignant neoplasm of cervix (principal)
CPT/HCPCS: 87624; 88175; G0145

== ENCOUNTER → 2022-06-07 | Outpatient (CLI) | payer OTHER, SELFPAY ==
--- NOTE | 2022-06-07 08:55 | BI_ITS ---
MAMMOGRAPHY - BILATERAL DIAGNOSTIC REASON FOR EXAM: Female, 51 years old. Palpable lump in the upper-outer quadrant of the right breast. PERTINENT HISTORY: Aunt with breast cancer. TECHNIQUE: Digital bilateral breast marco (3D mammographic acquisition) in the CC and MLO projections. 2-D mediolateral oblique (MLO) and craniocaudad (CC) views of both breasts were obtained. CAD: Full Field Digital Mammography with Computer Added Detection was performed. COMPARISON: Comparison is made with prior study dated 08/10/2021 and 07/27/2020. FINDINGS: Breast Composition: The breasts are heterogeneously dense, which may obscure small masses. There are no dominant masses or suspicious calcifications. Stable 6.6 mm x 8 mm well-defined nodule in the central lateral portion of the right breast from prior sonogram. A left-sided breast prosthesis is seen. Stable benign-appearing bilateral axillary lymph nodes. No other significant abnormalities are identified. There has been no significant change since the prior study. BI/DIAG MAMM W/CAD, BILAT IMPRESSION: Stable bilateral diagnostic mammogram. With the patient''s history of a palpable lump in the upper outer quadrant of the right breast, correlation with ultrasound is recommended. ASSESSMENT CATEGORY: BIRADS Category 0: Incomplete. Need additional imaging evaluation. A letter regarding these results will be sent to the patient by the facility within 30 days. Approximately 10% of breast cancers are not detected by mammography. A normal mammogram should not delay biopsy of a clinically suspicious abnormality. Electronically Signed: Farhan Luna MD at 9:56 EST ,
--- NOTE | 2022-06-07 09:38 | US_ITS ---
STUDY: ULTRASOUND BREAST - RIGHT REASON FOR EXAM: Female, 51 years old. Palpable lump in the right breast. TECHNIQUE: Axial and longitudinal images of the RIGHT breast were performed with a high resolution ultrasound transducer. # OF IMAGES: 41 COMPARISON: Comparison is made with prior sonogram dated 07/27/2020 and prior mammogram done earlier in the day. FINDINGS: RIGHT Breast: There is a 4 mm x 5 mm x 4 mm cyst at the 9 o''clock position the breast at 2 cm from the nipple. There is also evidence of a 4 mm x 4 mm x 3 mm benign-appearing lymph node at the 9 o''clock position of the breast at 4 cm from the nipple. US/Breast Limited Unilateral IMPRESSION: 4 mm x 5 mm x 4 mm cyst at the 9 o''clock position of the breast at 2 cm from the nipple. 4 mm x 4 mm x 3 mm benign-appearing lymph node at 9 o''clock position of the breast at 4 cm from the nipple. ASSESSMENT CATEGORY: BIRADS Category 2: Benign. A letter regarding these results will be sent to the patient by the facility within 30 days. Electronically Signed: Farhan Luna MD at 10:14 EST ,
== END | disposition home or self-care (01) ==
PROVIDERS: PCP Internal Medicine; Visit Provider Nurse Practitioner Women's Health
DX: N60.01 Solitary cyst of right breast (principal); N64.4 Mastodynia
CPT/HCPCS: 76642; 77062; 77066; G0279

== ENCOUNTER → 2022-09-26 | Outpatient (CLI) | payer OTHER, SELFPAY ==
[2022-09-28 10:07] LABS: Lyme Scn Total Ab w/Rflx Negative (Negative)
== END | disposition home or self-care (01) ==
LOC: LAB 16:30
PROVIDERS: PCP Internal Medicine; Referring Provider Internal Medicine; Visit Provider Internal Medicine
DX: R53.81 Other malaise (principal); R53.83 Other fatigue; W57.XXXA Bitten or stung by nonvenomous insect and other nonvenomous arthropods, initial encounter
CPT/HCPCS: 36415; 86618

== ENCOUNTER → 2023-02-24 | Outpatient (CLI) | payer SELFPAY ==
--- NOTE | 2023-02-24 06:58 | CT_ITS ---
STUDY: CT CHEST WITHOUT CONTRAST REASON FOR EXAM: Female, 52 years old. SOB RADIATION DOSAGE (If Supplied By Facility): CTDIvol = ( 12.19 ) mGy, DLP = ( 170.66 ) mGycm TECHNIQUE: Transaxial imaging was performed without the administration of intravenous contrast material. Individualized dose optimization techniques were used for this CT. COMPARISON: No relevant priors. FINDINGS: CHEST Left breast implant is seen. The lungs are normal. There is no demonstrated pleural abnormality. Normal heart and pericardium. Minimal calcification is seen of the LAD. Normal mediastinum. Normal hilar regions. Normal unenhanced pulmonary arteries. Normal aorta arch and descending thoracic aorta. Normal osseous structures. There is no demonstrated abnormality of the visualized upper abdomen. CT/Limited Chest CT Cardiac Only IMPRESSION: Minimal calcific plaque of the LAD. Electronically Signed: Farhan Luna MD at 9:44 EST ,
--- NOTE | 2023-03-03 15:48 | CA.SCORE ---
Calcium Scoring Date of Study:: 02/24/23 Indications Indications: SOB Coronary Calcium Scoring: High-resolution Computed Tomographic imaging of the chest was performed on [ 02/24/23], with particular attention paid to the coronary arteries. Images from the examination were analyzed for the presence and extent of coronary artery calcification , using coronary calcium quantification software. The patient tolerated the procedure well and there were no complications. The results of the coronary calcification analysis are provided below. Findings Coronary Artery Left Main (LM): 0 Left Anterior Descending (LAD): 0 Left Circumflex (LCX): 0 Right Coronary Artery (RCA): 0 Total Agatston Score: 0 Percentile Rankin% Calcium Scoring Interpretation: Different methods to categorize the overall amount of coronary plaque. Overall amount CAC SIS Visual of coronary plaque P1 Mild -100 <2 1-2 vessels with mild amount of plaque P2 Moderate 101-300 3-4 1-2 vessels with moderate amount, 3 vessels with mild amount of plaque P3 Severe 301-999 5-7 3 vessels with moderate amount, 1 vessel with severe amount of plaque P4 Extensive >1000 >8 2-3 vessels with severe amount of plaque Conclusion: No significant atherosclerotic plaquing noted.
== END | disposition home or self-care (01) ==
PROVIDERS: PCP Internal Medicine; Referring Provider Internal Medicine Cardiovascular Disease; Visit Provider Internal Medicine Cardiovascular Disease
DX: R06.00 Dyspnea, unspecified (principal)
CPT/HCPCS: 75571; 76380

== ENCOUNTER → 2023-06-18 | Outpatient (CLI) | payer OTHER, SELFPAY ==
--- OUTSIDE RECORDS SUMMARY | 2023-06-18 08:45 | XMS RPT_ITS | CCD ---
Author Name Unknown Address [address] [place] [id number] Organization [facility] Care Team Providers Care Cost Report Clerk Name Role Phone Navneet Tracey Unavailable Unavailable Britta Iglesias Unavailable Allergies Allergy Classification Reported Allergen(s) Allergy Type Date of Onset Reaction(s) Facility (2 sources) ciprofloxacin Drug Allergy 7 Anaphylatic [facility] Work Phone: (2 sources) Penicillins (Antibiotic) drug allergy 7 rash [facility] Work Phone: Medications Completed/Discontinued Medications Medication Drug Class(es) Dates Sig (Normalized) Sig (Original) ibuprofen 200 mg oral tablet (2 sources) Nonsteroidal Anti-inflammatory Drug Start: 06-24-2016 ADVIL 200 MG TABS as needed IBUPROFEN [id number] Sherley Morillo PA-C levonorgestrel 0.446811 mg/hr intrauterine system (2 sources) Progestin, Progestin-containin g Intrauterine Device Start: 06-24-2016 MIRENA (52 MG) 20 MCG/24HR IUD LEVONORGESTREL [id number] Sherley Morillo PA-C predniSONE 20 mg oral tablet (2 sources) Corticosteroid Start: 12-11-2016 PREDNISONE 20 MG TABS 4 tablets daily for 4 days, then 3 tablets daily for 4 days, then 2 tablets daily for 4 days, then 1 tablet daily for 4 days PREDNISONE [id number] Ash MULTANI Problems Active Problems Problem Classification Problem Date Documented Date Episodic/Chronic Disorders of lipid metabolism (2 sources) Hyperlipidemia; Translations: [Hyperlipidemia, unspecified] Onset: 06-26-2016 06-26-2016 Chronic Osteoarthritis (2 sources) Osteoarthritis of knee; Translations: [Osteoarthritis of knee, unspecified] Onset: 11-13-2016 11-25-2016 Chronic Past or Other Problems Problem Classification Problem Date Documented Da te Episodic/Chronic Joint disorders and dislocations; trauma-related (4 sources) Other tear of lateral meniscus, current injury, left knee, subsequent encounter; Translations: [Other tear of lateral meniscus, current injury, left knee, initial encounter] Onset: 11-13-2016 11-25-2016 Episodic Nonspecific chest pain (2 sources) Chest pain; Translations: [Chest pain, unspecified] Onset: 06-25-2016 06-25-2016 Episodic Other connective tissue disease (2 sources) Iliotibial band friction syndrome; Translations: [Iliotibial band syndrome, left leg] Onset: 11-13-2016 11-25-2016 Episodic Other non-traumatic joint disorders (2 sources) Knee pain; Translations: [Pain in left knee] Onset: 11-06-2016 11-06-2016 Episodic Results Test Name Value Interpretation Reference Range Facil ity Vital Signs Date Time Vital Sign Value Performing Clinician Facility 12-11-2016 07:50-0400 BMI (Body Mass Index) 30.21 kg/m2 [facility] Work Phone: 12-11-2016 07:50-0400 Body Temperature 97.6 [degF] [facility] Work Phone: 12-11-2016 07:50-0400 BP Diastolic 72 mm[Hg] [facility] Work Phone: 12-11-2016 07:50-0400 BP Systolic 116 mm[Hg] [facility] Work Phone: 12-11-2016 07:50-0400 Height 162.56 cm [facility] Work Phone: 12-11-2016 07:50-0400 Pulse (Heart Rate) 75 /min [facility] Work Phone: 12-11-2016 07:50-0400 Respiratory Rate 12 /min Britta Iglesias [facility] [address] [facility] Work Phone: 12-11-2016 07:50-0400 Weight 79.83 kg Britta Iglesias [facility] Medical [facility] Work Phone: Procedures Date Procedure Procedure Detail Performing Clinician Start: 11-22-2016 End: 11-25-2016 Arthrocentesis aspir&/inj major jt/bursa w/o us Adolfo Valdez Work Phone: Start: 06-26-2016 End: 06-27-2016 Lipid 1996 panel - Serum or Plasma Sherley Morillo PA-C Work Phone: Start: 06-25-2016 End: 06-26-2016 C reactive protein [Mass/volume] in Serum or Plasma by High sensitivity method Douglas Golden MD Start: 06-25-2016 End: 06-26-2016 Comprehensive metabolic panel Douglas Golden MD Start: 06-25-2016 End: 06-26-2016 Stress Echocardiogram (treadmill) Sherley Morillo PA-C Work Phone: Plan of Treatment Date Care Activity Detail Author Start: 02-27-2017 End: 02-27-2017 Mri any jt lower extrem w/o contrast matrl MRI Joint Lower Extremity [facility] Work Phone: Start: 02-27-2017 End: 02-27-2017 Appointment Appointment [facility] Work Phone: Start: 11-06-2016 End: 11-06-2016 Radiologic exam knee complete 4/more views X-Ray, Knee [facility] Work Phone: Start: 06-26-2016 End: 06-26-2016 *Hepatic Function Panel *Hepatic Function Panel [facility] Work Phone: Start: 06-26-2016 End: 06-27-2016 Lipid panel [AGGREGATE] *Lipid Profile CC PCP [facility] Ce [facility]ter [facility] Work Phone: Start: 06-25-2016 End: 06-26-2016 C reactive protein (hsCRP) *CRP, high sensitivity [facility] Work Phone: Start: 06-25-2016 End: 06-26-2016 Comprehensive metabolic panel Comp Metabolic Panel [facility] Work Phone: Start: 06-25-2016 End: 06-26-2016 Stress Echocardiogram (treadmill) Stress Echocardiogram (treadmill) [facility] Work Phone: Additional Source Comments FOR RECORDS PERTAINING TO PATIENTS WHO ARE OR HAVE BEEN ENROLLED IN A CHEMICAL DEPENDENCY/SUBSTANCEABUSE PROGRAM, SOME INFORMATION MAY BE OMITTED. This clinical summary was aggregated from multiple sources. Caution should be exercised in using it in the provision of clinical care. This summary normalizes information from multiple sources, and as a consequence, information in this document may materially change the coding, format and clinical context of patient data. In addition, data may be omitted in some cases. CLINICAL DECISIONS SHOULD BE BASED ON THE PRIMARY CLINICAL RECORDS. [employer] provides no warranty or guarantee of the accuracy or completeness of information in this document.
[2023-06-18 12:24] LABS: Absolute Lymphocyte Count 2.36 X10^3/uL (0.83-4.51); Absolute Neutrophil Count 2.9 X10^3/uL (2.0-7.7); Basophil# 0.07 X10^3/uL; Basophil% 1.2 % (0-1); Eosinophil# 0.23 X10^3/uL; Eosinophils% 3.8 % (0-5); Hemoglobin 14.1 g/dL (12.0-15.0); Lymphocyte # 2.36 X10^3/ul (0.83-4.51); Lymphocyte % 38.9 % (19-41); Mean Corpuscular Volume 84.3 fL (81-99); Mean Platelet Vol. 10.4 fl (6.2-12.0); Monocyte% 8.3 % (0-10); NRBC Flagged by Analyzer 0 % (0-5); Neutrophil # 2.88 X10^3/uL (2.7-7.7); Neutrophil % 47.5 % (47-70); Platelet Count 300 K/mm3 (150-450); RBC Distribution Width CV 14.1 % (11.6-14.6); RBC Distribution Width SD 43.2 fl (35.1-43.9); Red Blood Count 5.22 M/mm3 (4.2-5.4); White Blood Count 6.1 K/mm3 (4.4-11.0)
[2023-06-18 13:12] LABS: ALB/GLOB Ratio 1.2 RATIO (0.9-2.4); AST(SGOT) 38 U/L (15-37); Alanine Aminotransfer ALT/SGPT 46 U/L (13-56); Albumin, Serum 4.3 g/dL (3.2-5.0); Alkaline Phosphatase 86 U/L (45-117); Anion Gap 6 (5-15); BUN 23 mg/dL (7-18); Calcium,Total 9.8 mg/dL (8.5-10.1); Chloride 105 mmol/L (98-107); Cholesterol 216 mg/dL (200); EST Glomerular Filtration Rate 61 mL/min (>60); Est Glom Filt Rate - Afr Amer 74 mL/min (>60); Globulin 3.6 g/dL (2.2-4.2); Glucose 123 mg/dL (74-106); High Density Lipoprotein 55 mg/dL; Potassium 4.2 mmol/L (3.5-5.1); Protein, Total 7.9 g/dL (6.4-8.2); Sodium Level 138 mmol/L (136-145); Triglycerides 107 mg/dL; Very Low Density Lipoprotein 21 mg/dL (5-40)
[2023-06-18 13:34] LABS: Hemoglobin A1c 6.2 % (3.8-5.6)
== END | disposition home or self-care (01) ==
LOC: BIMLAB 08:23
PROVIDERS: PCP Internal Medicine; Visit Provider Internal Medicine
DX: I10 Essential (primary) hypertension (principal); R73.03 Prediabetes
CPT/HCPCS: 36415; 80053; 80061; 83036; 85025

== ENCOUNTER → 2023-06-27 | Outpatient (CLI) | payer OTHER, SELFPAY ==
--- NOTE | 2023-06-27 07:06 | BI_ITS ---
MAMMOGRAPHY - BILATERAL SCREENING REASON FOR EXAM: Female, 53 years old. Routine annual screening examination. PERTINENT HISTORY: Mother with breast cancer. Aunt with breast cancer. Left breast implant. TECHNIQUE: Digital bilateral breast jessee (3D mammographic acquisition) in the CC and MLO projections. 2-D mediolateral oblique (MLO) and craniocaudad (CC) views of both breasts were obtained. CAD: Full Field Digital Mammography with Computer Added Detection was performed. COMPARISON: Comparison is made with prior study dated June 07, 2022 and August 10, 2021. FINDINGS: Breast Composition: The breasts are heterogeneously dense, which may obscure small masses. There is a 10.7 mm x 8.7 mm nodular density seen in the deep slightly upper medial aspect of the left breast. Correlation with ultrasound is recommended. Stable appearance of the left breast implant as well as the left axillary benign-appearing lymph nodes. No other significant abnormalities are identified. BI/SCRN MAMM (CAD)W/JESSEE BILAT IMPRESSION: New 10.7 mm x 8.7 mm nodular densities in the deep slightly upper medial aspect of the left breast. Correlation with ultrasound is recommended for further evaluation. ASSESSMENT CATEGORY: BIRADS Category 0: Incomplete. Need additional imaging evaluation. A letter regarding these results will be sent to the patient by the facility within 30 days. Approximately 10% of breast cancers are not detected by mammography. A normal mammogram should not delay biopsy of a clinically suspicious abnormality. [id number] Electronically Signed: Farhan Luna MD at 8:43 EDT ,
--- OUTSIDE RECORDS SUMMARY | 2023-06-27 07:23 | XMS RPT_ITS | CCD ---
Author Name Unknown Address [address] [place] [id number] Organization [facility] Care Team Providers Care Electronic Device Monitor Name Role Phone Navneet Tracey Unavailable Unavailable Britta Iglesias Unavailable Allergies Allergy Classification Reported Allergen(s) Allergy Type Date of Onset Reaction(s) Facility (2 sources) ciprofloxacin Drug Allergy 7 Anaphylatic [facility] Work Phone: (2 sources) Penicillins (Antibiotic) drug allergy 7 rash [facility] Work Phone: Medications Completed/Discontinued Medications Medication Drug Class(es) Dates Sig (Normalized) Sig (Original) ibuprofen 200 mg oral tablet (2 sources) Nonsteroidal Anti-inflammatory Drug Start: 06-24-2016 ADVIL 200 MG TABS as needed IBUPROFEN [id number] Sherley Morillo PA-C levonorgestrel 0.816908 mg/hr intrauterine system (2 sources) Progestin, Progestin-containin g Intrauterine Device Start: 06-24-2016 MIRENA (52 MG) 20 MCG/24HR IUD LEVONORGESTREL [id number] Sherley Morillo PA-C predniSONE 20 mg oral tablet (2 sources) Corticosteroid Start: 12-11-2016 PREDNISONE 20 MG TABS 4 tablets daily for 4 days, then 3 tablets daily for 4 days, then 2 tablets daily for 4 days, then 1 tablet daily for 4 days PREDNISONE [id number] Ash MULTANI Problems Active Problems Problem Classification [...] 07:50-0400 BMI (Body Mass Index) 30.21 kg/m2 [facility] Work Phone: 12-11-2016 07:50-0400 Body Temperature 97.6 [degF] [facility] Work Phone: 12-11-2016 07:50-0400 BP Diastolic 72 mm[Hg] [facility] Work Phone: 12-11-2016 07:50-0400 BP Systolic 116 mm[Hg] [facility] Work Phone: 12-11-2016 07:50-0400 Height 162.56 cm [facility] Work Phone: 12-11-2016 07:50-0400 Pulse (Heart Rate) 75 /min [facility] Work Phone: 12-11-2016 07:50-0400 Respiratory Rate 12 /min Britta Iglesias [facility] [address] [facility] Work Phone: 12-11-2016 07:50-0400 Weight 79.83 kg Britta Iglesias [facility] Medical [facility] Work Phone: [...] w/o contrast matrl MRI Joint Lower Extremity [facility] Work Phone: Start: 02-27-2017 End: 02-27-2017 Appointment Appointment [facility] Work Phone: Start: 11-06-2016 End: 11-06-2016 Radiologic exam knee complete 4/more views X-Ray, Knee [facility] Work Phone: Start: 06-26-2016 End: 06-26-2016 *Hepatic Function Panel *Hepatic Function Panel [facility] Work Phone: Start: 06-26-2016 End: 06-27-2016 Lipid panel [AGGREGATE] *Lipid Profile CC PCP [facility] Ce [facility] Work Phone: Start: 06-25-2016 End: 06-26-2016 C reactive protein (hsCRP) *CRP, high sensitivity [facility] Work Phone: Start: 06-25-2016 End: 06-26-2016 Comprehensive metabolic panel Comp Metabolic Panel [facility] Work Phone: Start: 06-25-2016 End: 06-26-2016 Stress Echocardiogram (treadmill) Stress Echocardiogram (treadmill) [facility] Work Phone: Additional Source Comments FOR [...] BE BASED ON THE PRIMARY CLINICAL RECORDS. [employer] provides no warranty or guarantee of the accuracy or completeness of information in this document.
== END | disposition home or self-care (01) ==
LOC: OPBI 07:05
PROVIDERS: PCP Internal Medicine; Referring Provider Internal Medicine; Visit Provider Internal Medicine
DX: Z12.31 Encounter for screening mammogram for malignant neoplasm of breast (principal); Z80.3 Family history of malignant neoplasm of breast
CPT/HCPCS: 77063; 77067

== ENCOUNTER → 2023-06-30 | Outpatient (CLI) | payer OTHER, SELFPAY ==
--- NOTE | 2023-06-30 08:02 | US_ITS ---
STUDY: ULTRASOUND BREAST - LEFT REASON FOR EXAM: Female, 53 years old. Abnormal screening mammogram. TECHNIQUE: Axial and longitudinal images of the LEFT breast were performed with a high resolution ultrasound transducer. # OF IMAGES: 76 COMPARISON: Comparison is made with prior mammogram dated June 27, 2023. FINDINGS: LEFT Breast: There is a 4 mm x 4 mm x 5 mm irregular hypoechoic nodular density at the 9 to 10:00 position of the breast and 5 cm from the nipple. There is a 1.6 cm x 1.4 cm x 0.9 cm irregular hypoechoic nodular density with increased vascularity at the 9 to 10:00 position of the breast at 6 sinus nipple. Biopsy recommended. Biopsy recommended. Breast implant is seen. US/Breast Limited Unilateral IMPRESSION: 1.6 cm x 1.4 cm x 0.9 cm irregular hypoechoic nodular density with increased vascularity at the 9 to 10:00 position of the breast is 6 cm from nipple. Correlation with MRI and biopsy recommended. ASSESSMENT CATEGORY: BIRADS Category 0: Incomplete. Need additional imaging evaluation. A letter regarding these results will be sent to the patient by the facility within 30 days. Electronically Signed: Farhan Luna MD at 13:28 EDT ,
== END | disposition home or self-care (01) ==
LOC: OPUS 07:58
PROVIDERS: PCP Internal Medicine; Referring Provider Internal Medicine; Visit Provider Internal Medicine
DX: R92.8 Other abnormal and inconclusive findings on diagnostic imaging of breast (principal)
CPT/HCPCS: 76642

== ENCOUNTER → 2023-07-08 | Outpatient (CLI) | payer OTHER, SELFPAY ==
--- NOTE | 2023-07-08 14:35 | MRI_ITS ---
STUDY: BILATERAL BREAST MR WITHOUT AND WITH CONTRAST REASON FOR EXAM: Female, 53 years old. History of bilateral breast lumps. Most recently, left breast lump. Abnormal mammogram. History of bilateral saline implant placement in 2005 with history of right implant rupture in 2017. Maternal breast cancer and fifth decade. TECHNIQUE: Multi-sequence multi-echo imaging of both breasts was performed with a dedicated breast coil. T1-weighted and T2-weighted images were performed before the administration of contrast. T1-weighted images were also performed after the intravenous administration of 15 cc of Clariscan contrast. COMPARISON: Left breast ultrasound dated 06/30/2023 bilateral screening mammogram dated 06/27/2023, right breast ultrasound dated 06/07/2022, bilateral mammogram dated 06/07/2019, bilateral mammogram dated 08/10/2021 and right breast ultrasound dated 07/27/2020. FINDINGS: RIGHT BREAST: Scattered fibroglandular densities with moderate background enhancement. Ruptured and contracted right breast implant which was also seen on the mammogram. No abnormality identified in the upper inner quadrant of the left breast. No abnormal enhancing masses or areas of non-mass enhancement in the right breast. LEFT BREAST: Scattered fibroglandular densities with moderate background enhancement. Subglandular saline implant with no complicating features. No abnormal enhancing masses or areas of non-mass enhancement in the left breast. No enlarged or abnormal lymph nodes. No abnormality in the visualized regions of the chest or liver. MRI/Breast Bilateral W/O and W IMPRESSION: Ruptured right implant with no complicating features of the left implant. No MRI abnormality of the left breast. A 6 month follow-up diagnostic left mammogram and repeat left breast ultrasound with particular attention to the 9:00 to 10:00 position 6 cm from the nipple is recommended for the hypoechoic area noted on the left breast ultrasound dated 06/30/2023. CATEGORY: BIRADS Category 3: Probably Benign - Short-Interval Follow-up Suggested. A letter regarding these results will be sent to the patient by the facility within 30 days. Electronically Signed: Vipul Chadwick MD at 10:28 EDT ,
== END | disposition home or self-care (01) ==
LOC: MRI 14:33
PROVIDERS: PCP Internal Medicine; Referring Provider Internal Medicine; Visit Provider Internal Medicine
DX: N63.20 Unspecified lump in the left breast, unspecified quadrant (principal)
CPT/HCPCS: 77049; A9575; A4216; C8908

== ENCOUNTER → 2023-07-11 | Outpatient (CLI) | payer OTHER, SELFPAY ==
--- NOTE | 2023-07-11 15:23 | US_ITS ---
STUDY: ULTRASOUND BREAST - LEFT REASON FOR EXAM: Female, 53 years old. Follow-up post MRI scan of the breast. TECHNIQUE: Axial and longitudinal images of the LEFT breast were performed with a high resolution ultrasound transducer. # OF IMAGES: 70 COMPARISON: Comparison is made with prior MRI of the breast dated July 08, 2023. FINDINGS: LEFT Breast: There is a septated 4 mm x 5 mm x 4 mm cyst at the 9 to 10:00 position of the breast at 6 cm from the nipple. US/Breast Limited Unilateral IMPRESSION: 4 mm x 5 mm x 4 mm septated cyst at the 9 to 10:00 position of the breast at 6 cm from the nipple. ASSESSMENT CATEGORY: BIRADS Category 2: Benign. A letter regarding these results will be sent to the patient by the facility within 30 days. Electronically Signed: Farhan Luna MD at 8:14 EDT ,
== END | disposition home or self-care (01) ==
LOC: OPUS 15:23
PROVIDERS: PCP Internal Medicine; Referring Provider Surgery; Visit Provider Surgery
DX: N63.22 Unspecified lump in the left breast, upper inner quadrant (principal)
CPT/HCPCS: 76642

== ENCOUNTER → 2023-10-03 | Outpatient (CLI) | payer OTHER, SELFPAY ==
[2023-10-09 00:07] LABS: HEPATITIS B SURFACE AG Negative (Negative); Hep C Antibodies Non Reactive (Non Reactive); Hepatitis A IgM Antibody Negative (Negative); Hepatitis B Core AB IgM Negative (Negative); QNTFERON TB Mitogen Value > 10.00 IU/mL (.); QNTFERON TB Nil Value 0.07 IU/mL (.); QNTFERON TB1+ Ag Value 0.06 IU/mL (.); QNTFERON TB2+ Ag Value 0.07 IU/mL (.); QNTIFERON TB Positive Criteria Negative (Negative)
== END | disposition home or self-care (01) ==
PROVIDERS: PCP Internal Medicine; Referring Provider Dermatology Pediatric Dermatology; Visit Provider Dermatology Pediatric Dermatology
DX: L40.0 Psoriasis vulgaris (principal); Z79.899 Other long term (current) drug therapy
CPT/HCPCS: 36415; 80074; 86480

== ENCOUNTER → 2023-12-22 | Outpatient (CLI) | payer OTHER, SELFPAY ==
[2023-12-22 12:31] LABS: ALB/GLOB Ratio 1.2 RATIO (0.9-2.4); AST(SGOT) 25 U/L (15-37); Alanine Aminotransfer ALT/SGPT 42 U/L (13-56); Albumin, Serum 4.2 g/dL (3.2-5.0); Alkaline Phosphatase 83 U/L (45-117); Anion Gap 9 (5-15); BUN 19 mg/dL (7-18); BUN/Creat Ratio 18.8 RATIO (10-20); Calcium,Total 9.9 mg/dL (8.5-10.1); Chloride 102 mmol/L (98-107); Cholesterol 134 mg/dL (200); Creatinine, Serum 1.01 mg/dL (0.55-1.02); EST Glomerular Filtration Rate 61 mL/min (>60); Est Glom Filt Rate - Afr Amer 73 mL/min (>60); Globulin 3.6 g/dL (2.2-4.2); Glucose 111 mg/dL (74-106); High Density Lipoprotein 51 mg/dL; Potassium 4.4 mmol/L (3.5-5.1); Protein, Total 7.8 g/dL (6.4-8.2); Sodium Level 136 mmol/L (136-145); Triglycerides 90 mg/dL; Very Low Density Lipoprotein 18 mg/dL (5-40)
== END | disposition home or self-care (01) ==
PROVIDERS: PCP Internal Medicine; Referring Provider Internal Medicine; Visit Provider Internal Medicine
DX: E78.5 Hyperlipidemia, unspecified (principal)
CPT/HCPCS: 36415; 80053; 80061

== ENCOUNTER 2024-06-21 07:41 | Day surgery (SDC) | payer OTHER, SELFPAY ==
[2024-06-21] VITALS (8 sets, daily range): BP systolic 111–118; BP diastolic 79–89; PULSE 74–86; RESP 16; TEMP 36.3–36.4; O2SAT 96–100; BMI 27.9
--- NOTE | 2024-06-21 07:47 | PCM.PRE.AN2 ---
ASA Classification* ASA Classification ASA Classification: 2 Assessment & Plan Anesthesia* Anesthesia Assessment Anesthesia Assessment: Discussed sedation and/or anesthesia options, risks, benefits, and alternatives with patient/parents/legal guardian/POA. Questions invited. The patient/parents/legal guardian/POA seems to understand and agrees to proceed with anesthesia plan. Reviewed the physical assessment, medical history, allergy history and patient home medications list prior to surgery/procedure/anesthetic and documented any changes. Performed airway and anesthesia risk assessments. Anesthesia Type Anesthesia Type: MAC Anesthesia Focused Assessment* Airway Assessment Mouth opens: >3 cm Mallampati Score: II Focused Labs Anesthesia Preop lab: CBC WBC 6.1 K/mm3 (4.4-11.0) 06/18/23 08:06/18/23 RBC 5.22 M/mm3 (4.2-5.4) 06/18/23 08:06/18/23 Hgb 14.1 g/dL (12.0-15.0) 06/18/23 08:23 06/18/23 Hct 44.0 % (37-47) 06/18/23 08:23 06/18/23 Plt Count 300 K/mm3 (150-450) 06/18/23 08:23 06/18/23 CHEMISTRY Potassium 4.4 mmol/L (3.5-5.1) 12/22/23 08:12/22/23 Sodium 136 mmol/L (136-145) 12/22/23 08:12/22/23 BUN 19 mg/dL (7-18) H 12/22/23 08:33 12/22/23 Creatinine 1.01 mg/dL (0.55-1.02) 12/22/23 08:12/22/23 Glucose 111 mg/dL (74-106) H 12/22/23 08:12/22/23 TSH 1.18 uIU/mL (0.358-3.74) 05/11/19 14:03 05/11/19 COAG Pre-Assessment Diagnosis/Proposed Procedure Planned Operative Procedure(s): COLONOSCOPY Anesthesia History 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 When Was Last Pacemaker Check QUESTION #4 FULL TEXT: You/Your Family Experience fever (hyperthermia) with Anesthesia Last Oral Intake Last Oral intake: Last Oral Intake NPO since Meds taken in AM with sips of water? Meds patient instructed to take am of surgery PONV PONV - retail business development manager: PONV - retail business development manager Female Yes 06/18/24 10:27 HX of Motion Sickness No 06/18/24 10:27 HX of N/V After Surgery No 06/18/24 10:27 Non-Smoker Yes 06/18/24 10:27 Duration of Surgery greater No 06/18/24 10:27 than 60 minutes Number of Risk Factors 2 06/18/24 10:27 PONV Score Moderate Risk 06/18/24 10:27 Height & Weight Height & Weight: Anesthesia: Height & Weight Height 5 ft 4 in 04/20/24 10:59 Respiratory Assessment Respiratory Assessment - retail business development manager: Respiratory Tract Infection Hx - retail business development manager Hx Respiratory Tract Infection No 06/18/24 10:27 STOP Sleep Apnea STOP Sleep Apnea - retail business development manager: STOP Sleep Apnea - retail business development manager Hx Hypertension Yes 06/18/24 10:27 Hx Sleep Apnea No 06/18/24 10:27 CPAP No 01/10/23 14:31 BIPAP Do you snore loudly (louder No 06/18/24 10:27 than talking or can be heard Do you often feel tired/ No 06/18/24 10:27 fatigued/ sleepy during daytime? Has anyone observed you stop No 06/18/24 10:27 breathing during sleep? STOP Results Negative 06/18/24 10:27 QUESTION #5 FULL TEXT : Do you snore loudly (louder than talking or can be heard through closed doors)? 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 Specify any problems Hx of Preganancy in last 3 No 06/18/24 10:27 Months Nurse Filling Out Transfusion [facility] 06/18/24 10:27 & Questions: Date: 06/18/24 06/18/24 10:27 Time: 10:32 06/18/24 10:27 Patient unable to answer at this time (ie. confused, unrespo /Reproduction History /Reproductive History - retail business development manager: /Reproductive Hx- retail business development manager Hx Now Gestational Age (in weeks): EDC: Hx Hx Para Hx Section SAB No 01/10/23 14:31 PFSH Medical History Postmenopausal Pre-diabetes Wears contact lenses Wears glasses Gastric reflux Family history of malignant neoplasm of colon in relative diagnosed when younger than 50 years of age Family history of colon cancer in father Metabolic syndrome Left breast lump Abnormal mammogram Hyperlipidemia Psoriatic arthritis Colon cancer screening Brow ptosis, bilateral Age-related facial wrinkles Glabellar wrinkles Health care maintenance Sinusitis Malaise and fatigue Tick bite Retinal vascular abnormality Headache Squamous cell skin cancer Borderline type 2 diabetes mellitus Family history of breast cancer in mother Frequent headaches Hypertension Arthritis Thyroiditis Cervicalgia Thyroid nodule Environmental allergies Home Medications ?Medication ?Instructions ?Recorded ?Last Taken ?Type levonorgestrel (Mirena) 1 insert intrauterine ONCE 03/27/17 Unknown History nitroglycerin 0.1 mg/hr 1 patch transdermal DAILY PRN 11/15/20 Unknown Rx transdermal 24 hour patch PLANTAR FASC #30 ea estradiol 0.01% (0.1 mg/gram) See Rx Instructions vaginal 05/14/22 Unknown Rx vaginal cream .COMPLEX #42.5 grams spironolactone 25 mg tablet 25 mg PO QAM #90 tabs 11/20/23 Unknown Rx duloxetine 30 mg capsule,delayed 30 mg PO DAILY #90 caps 12/31/23 Unknown Rx release lisinopril 5 mg tablet 5 mg PO DAILY #90 tabs 12/31/23 Unknown Rx rosuvastatin 10 mg tablet 10 mg PO DAILY #90 tabs 12/31/23 Unknown Rx metformin 500 mg tablet,extended 500 mg PO QPM #90 TABLETS 02/02/24 Unknown Rx release 24 hr apremilast 30 mg tablet (Otezla) 30 mg PO BID 03/31/24 Unknown History fluticasone propionate 50 1 spray intranasal BID PRN allergy 04/20/24 Unknown History mcg/actuation nasal symptoms spray,suspension loratadine 10 mg tablet (Claritin) 10 mg PO DAILY PRN allergy symptoms 04/20/24 Unknown History semaglutide (weight loss) 0.5 0.5 mg (0.5 mL) subcut QWEEK 3 05/18/24 06/09/24 Rx mg/0.5 mL subcutaneous pen injector months #6.5 mL Allergy/AdvReac Type Severity Reaction Status Date / Time ciprofloxacin (From Cipro) Allergy Severe Anaphylaxis Verified 06/18/24 10:22 Penicillins Allergy Severe Rash Verified 06/18/24 10:22 Family History Father Colon cancer Younger than 60yrs Diabetes Mother Breast cancer Hypertension Diabetes High cholesterol Sister Colon cancer Younger than 50yrs History of blood clots Grandmother Diabetes Breast cancer Hypertension Grandfather Diabetes Uncle Colon cancer Surgical History Hx of colonoscopy Hx of breast implants, bilateral Cholecystectomy planned Social History household members: spouse number of children: 2 current occupational status: employed current occupation: [employer] Smoking Status: Never smoker alcohol intake: current alcohol intake frequency: holidays/special occasions only substance use type: does not use seatbelt use: always do you feel safe at home: Yes 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
--- NOTE | 2024-06-21 08:07 | HP.PCM_ITS ---
[facility] - General General Date of Service: 06/21/24 HPI Narrative IVETH MONTAÑO, is a 54 F who presents for screening colonoscopy due to family history of colon cancer. Patient's father and uncle were less than 60 and her sister is less than 50 diagnosed. Patient's last colonoscopy was December 2018 negative. Patient denies any chronic abdominal pain/nausea/vomiting/reflux. Patient has bowel movements daily denies any blood. [facility] Medical History (Updated 06/21/24 @ 08:[address] Diana Mchugh MD) Postmenopausal Pre-diabetes Wears contact lenses Wears glasses Gastric reflux Family history of malignant neoplasm of colon in relative diagnosed when younger than 50 years of age Family history of colon cancer in father Metabolic syndrome Left breast lump Abnormal mammogram Hyperlipidemia Psoriatic arthritis Colon cancer screening Brow ptosis, bilateral Age-related facial wrinkles Glabellar wrinkles Health care maintenance Sinusitis Malaise and fatigue Tick bite Retinal vascular abnormality Headache Squamous cell skin cancer Borderline type 2 diabetes mellitus Family history of breast cancer in mother Frequent headaches Hypertension Arthritis Thyroiditis Cervicalgia Thyroid nodule Environmental allergies Home Medications ?Medication ?Instructions ?Recorded ?Last Taken ?Type levonorgestrel (Mirena) 1 insert intrauterine ONCE 1 05/28/16 Unknown History nitroglycerin 0.1 mg/hr 1 patch transdermal DAILY DE N 11/15/20 Unknown Rx transdermal 24 hour patch PLANTAR FASC #30 ea estradiol 0.01% (0.1 mg/gram) See Rx Instructions vagi nal 05/14/22 Unknown Rx vaginal cream .COMPLEX #42.5 grams spironolactone 25 mg tablet 25 mg PO QAM #90 tabs 12/05 Unknown Rx duloxetine 30 mg capsule,delayed 30 mg PO DAILY #90 ca ps 12/31/23 Unknown Rx release lisinopril 5 mg tablet 5 mg PO DAILY #90 tabs 12/30 Unknown Rx rosuvastatin 10 mg tablet 10 mg PO DAILY #90 tabs 12/13 12/05 Unknown Rx metformin 500 mg tablet,extended 500 mg PO QPM #90 TAB LETS 02/02/24 Unknown Rx release 24 hr apremilast 30 mg tablet (Otezla) 30 mg PO BID 03/31/24 Unknown History fluticasone propionate 50 1 spray intranasal BID PRN a llergy 04/20/24 Unknown History mcg/actuation nasal symptoms spray,suspension loratadine 10 mg tablet (Claritin) 10 mg PO DAILY PRN allergy symptoms 04/20/24 Unknown History semaglutide (weight loss) 0.5 0.5 mg (0.5 mL) subcut Q WEEK 3 05/18/24 06/09/24 Rx mg/0.5 mL subcutaneous pen injector months #6.5 mL Allergy/AdvReac Type Severity Reaction Status Date / Time ciprofloxacin (From Cipro) Allergy Severe Anaphylaxis Verified 06/21/24 07:55 Penicillins Allergy Severe Rash Verified 06/21/24 07:55 Family History Father Colon cancer Younger than 60yrs Diabetes Mother Breast cancer Hypertension Diabetes High cholesterol Sister Colon cancer Younger than 50yrs History of blood clots Grandmother Diabetes Breast cancer Hypertension Grandfather Diabetes Uncle Colon cancer Surgical History Hx of colonoscopy Hx of breast implants, bilateral Cholecystectomy planned Social History household members: spouse number of children: 2 current occupational status: employed current occupation: [employer] Smoking Status: Never smoker alcohol intake: current alcohol intake frequency: holidays/special occasions only substance use type: does not use seatbelt use: always do you feel safe at home: Yes 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 Past Medical/Surgical History Planned Operation Planned Operative Procedure(s): COLONOSCOPY S.O.S: No Previous Hospitalizations/Surgeries HX Hospitalizations: No HX of Surgeries: GALLBLADDER BREAST AUGMENTATION Any Problems With Anesthesia: No You/Your Family Experience Fever (Hyperthermia) With Anes: No Cholinesterase deficiency: No Cardiovascular Hx Chest Pain within Last 2 months: No Hx of Irregular Heartbeat and/or Afib: No Hx Heart Attack: No Hx Congestive Heart Failure: No Hx Rheumatic Fever: No Hx Hypertension: Yes Hx Internal Defibrillator: No Hx Pacemaker: No Hx Cardiac Catheterization: No Hx Cardiac Surgery/Stents/Etc.: No Hx Stress Test: Yes (STRESS ECHO 06/2016) Hx Pain in Legs when Walking/Leg Cramps: No Respiratory Chronic Cough: No HX of Shortness of Breath: No Hoarseness: No Hx Chronic Obstructive Pulmonary Disease (COPD): No Hx Asthma: No Hx Emphysema: No Hx Sleep Apnea: No CPAP: No Hx Respiratory Tract Infection/Cold (presently): No Do You Snore Loudly (louder than talking or can be heard): No Do You Often Feel Tired/ Fatigued/ Sleepy Dring Daytime?: No Has Anyone Observed You Stop Breathing During Sleep?: No Result (for STOP score): Negative Hx Smoking: No Smoking Status: Never smoker Gastrointestinal Hx Gastrointestinal Disorders: No Hx Gastrointestinal Bleed: No Hx Ulcer: No Hx Hiatal Hernia: No Difficulty Chewing/Swallowing: No Special diet followed at home: No Hx Unplanned Weight Loss of 20#: No HX Unplanned Weight Gain of 20#: No Neurological Hx Seizures: No HX Syncope/Blackout Spells/Unconsciousness: No Hx Transient Ischemic Attacks (TIA): No Hx Multiple Sclerosis: No Hx Parkinson's Disease: No Hx Head/Neck Injury: Yes (HX OF NECK PAIN) Hx Back Injury/Pain: No Recent Onset of Speech Difficulty: No Restless Legs: No Does patient have nerve stimulator: No Blood Disorder Hx Leukemia: No Bleeding Tendencies: No Hx Deep Vein Thrombosis: No Hx High Cholesterol: No Blood Transmitted Disease: No Hx Hepatitis: No Hx Cirrhosis: No Hx Anemia: No Hx Blood Disorders: No Reproduction Is Patient Lactating: No Hx Hysterectomy: No Hx Tubal Ligation: No Are You Post Menopause: No Genitourinary Hx Renal Disease: No Musculoskeletal Hx Arthritis: Yes Hx Rheumatoid Arthritis: No Hx Gout: No Recent Onset of an Orthopedic Problem: No Endocrine Hx Diabetes: No Thyroid Disease: No (NODULE) Hx Steroid Therapy: No Psycho/Social Hx Substance Use: No Hx Alcohol Use: Yes (SOCIAL) Hx Anxiety: No Hx Depression: No Mental Illness: No Hx Dementia: No Miscellaneous Hx Cancer: No Recent Exposure to Contagious Disease: No Hx of C-Diff: No Any Loose Teeth: No Allergies ciprofloxacin (From Cipro) Allergy (Severe, Verified 06/21/24 07:55) Anaphylaxis Penicillins Allergy (Severe, Verified 06/21/24 07:55) Rash Discharge Is Pt Admitted From a Assisted, or a Nursing Home: No Who Could Help: After D/C, Where Do you Plan to Go: Return Home Vital Signs Vital Signs Vital Signs: 06/21/24 07:56 06/21/24 07:56 Temperature 97.5 F L Temperature Source Temporal Pulse Rate 77 Respiratory Rate 16 Respiratory Pattern Normal Blood Pressure 117/89 H Blood Pressure Mean 98 Blood Pressure Source Monitor Blood Pressure Position Semi-Fowlers Blood Pressure Location Right Arm Pulse Ox 100 Oxygen Delivery Method Room Air Weight Weight: 163 lb Body Mass Index (BMI) 27.9 Physical Exam Const alert, oriented x3 and no apparent distress HEENT normocephalic and head/scalp atraumatic Resp normal respiratory effort Cardio regular rate GI soft to palpation and non-tender; Negative for non-distended Palpation: Negative for guarding Extremity no clubbing, cyanosis or edema Skin no rashes or lesions noted Neuro CN's II-XII intact bilaterally Psych mental status grossly normal Assessment & Plan Assessment/Plan (1) Family history of malignant neoplasm of colon in relative diagnosed when y ounger than 50 years of age: Surgery Risks - Colonoscopy I discussed with the patient the risks of the procedure: Yes Risks Include but are not Limited To: Risks include but are not limited to: Bleeding, perforation requiring further surgery, inability to complete colonoscopy requiring barium enema.
--- NOTE | 2024-06-21 09:37 | PCM.POST.ANE ---
Anesthesia: Postop Eval I Current Vital Signs Temperature: 97.3 F Pulse Rate: 83 Blood Pressure: 116/81 Respiratory Rate: 16 Pulse Ox: 97 Oxygen Delivery Method: Room Air Assessment Airway patent: Yes Spontaneous unlabored respirations: Yes Mental status: Awake nausea: No Vomiting: No Anesthesia Complication: No Fluid Hydration Crystalloid volume administer (ml): 10 Total IV fluid infused: 10 Progress Note Anesthesia document: Postop Eval 1 completed: Yes
--- NOTE | 2024-06-21 09:48 | OP.COLON_ITS ---
Patient Name: Sherley Tapia Procedure Date: 06/21/2024 9:13 AM Date of : 1970 Age: 54 Procedure: Colonoscopy Indications: Family history of colon cancer in a first-degree relative before age 60 years Providers: Diana Mchugh MD Referring MD: Diana Mchugh MD Medicines: Monitored Anesthesia Care Patient Profile: This is a 54 year old female. Last Colonoscopy: December 2018. Complications: No immediate complications. Procedure: Pre-Anesthesia Assessment: - Prior to the procedure, a History and Physical was performed, and patient medications and allergies were reviewed. The patient's tolerance of previous anesthesia was also reviewed. The risks and benefits of the procedure and the sedation options and risks were discussed with the patient. All questions were answered, and informed consent was obtained. Prior Anticoagulants: The patient has taken no anticoagulant or antiplatelet agents. ASA Grade Assessment: Per anesthesia. After reviewing the risks and benefits, the patient was deemed in satisfactory condition to undergo the procedure. After I obtained informed consent, the scope was passed under direct vision. Throughout the procedure, the patient's blood pressure, pulse, and oxygen saturations were monitored continuously. The colonoscope was introduced through the anus and advanced to the cecum, identified by the appendiceal orifice, ileocecal valve and palpation. The colonoscopy was performed without difficulty. The patient tolerated the procedure well. The quality of the bowel preparation was good. Scope In: 9:20:34 AM Scope Withdrawal Time 0 hours 13 minutes 57 seconds Scope Out: 9:40:26 AM Total Procedure Duration Time 0 hours 19 minutes 52 seconds Findings: The perianal and digital rectal examinations were normal. The entire examined colon appeared normal on direct and retroflexion views. Impression: - The entire examined colon is normal on direct and retroflexion views. - No specimens collected. Recommendation: - Discharge patient to home. - Resume previous diet. - Continue present medications. - Repeat colonoscopy in 5 years for screening purposes. Procedure Code(s): --- Professional --- 99898, PT, Colonoscopy, flexible; diagnostic, including collection of specimen(s) by brushing or washing, when performed (separate procedure) Diagnosis Code(s): --- Professional --- Z80.0, Family history of malignant neoplasm of digestive organs CPT copyright 2021 [employer]. All rights reserved. The codes documented in this report are preliminary and upon supervisor scrap preparation review may be revised to meet current compliance requirements. MD Diana Goldsmith MD 06/21/2024 9:48:02 AM This report has been signed electronically. Number of Addenda: 0 Note Initiated On: 06/21/2024 9:13 AM
--- NOTE | 2024-06-21 09:49 | OP.CCLET_ITS ---
06/21/2024 Nazario Schulte MD [address] [place] [address] [place] [address] Re : Colonoscopy procedure for Sherley Tapia Dear Dr. Schulte This procedure was performed on Friday, June 21, 2024. My impressions and recommendations are as follows: Impressions : - The entire examined colon is normal on direct and retroflexion views. - No specimens collected. Recommendations : - Discharge patient to home. - Resume previous diet. - Continue present medications. - Repeat colonoscopy in 5 years for screening purposes. My findings are described in the full procedure note, which is enclosed. If I can be of further assistance, please feel free to contact me at Doctor phone number(s): , Work: . Sincerely, MD Diana Goldsmith MD 06/21/2024 9:48:02 AM This report has been signed electronically.
--- NOTE | 2024-06-21 10:07 | POSTOPAN2_ITS ---
Anesthesia Postop Eval I Sum Postop Eval Completion status Anesthesia document: Postop Eval 1 completed: Yes Anesthesia Postop Eval I Summary Anesthesia Postop Eval I Summary: Anesthesia Postop Eval I: Assessment Summary Airway patent Yes 06/21/24 09:46 TELEPHONE [email or web address] [email or web address] Spontaneous unlabored Yes 06/21/24 09:46 TELEPHONE LINES [email or web address] respirations Mental status Awake 06/21/24 09:46 TELEPHONE LINES [email or web address] nausea No 06/21/24 09:46 TELEPHONE LINES [email or web address].[email or web address] Vomiting No 06/21/24 09:46 TELEPHONE LINES [email or web address] Anesthesia Postop Eval I: Fluid Summary Crystalloid volume administer 10 06/21/24 09:46 TELEPHONE LINES [email or web address] (ml) Colloids volume administered ( ml) Blood Product volume administered (ml) Total IV fluid infused 10 06/21/24 09:46 TELEPHONE LINES [email or web address] Anesthesia Postop Eval I: Summary Notes Anesthesia Complication No 06/21/24 09:46 TELEPHONE LINES [email or web address] Anesthesia Complication Comment: Post-operative progress note Anesthesia: Postop Eval II Evaluation Mental status: Awake Pain Level: 0 nausea: No Vomiting: No
--- NOTE | 2024-06-21 10:07 | PCM.POSTANE2 ---
Anesthesia Postop Eval I Sum Postop Eval Completion status Anesthesia document: Postop Eval 1 completed: Yes Anesthesia Postop Eval I Summary Anesthesia Postop Eval I Summary: Anesthesia Postop Eval I: Assessment Summary Airway patent Yes 06/21/24 09:46 ENGINEER FIRST [email or web address] Spontaneous unlabored Yes 06/21/24 09:46 ENGINEER FIRST [email or web address] respirations Mental status Awake 06/21/24 09:46 ENGINEER FIRST [email or web address] nausea No 06/21/24 09:46 ENGINEER FIRST ASSISTANT.[email or web address] Vomiting No 06/21/24 09:46 ENGINEER FIRST ASSISTANT.[email or web address] Anesthesia Postop Eval I: Fluid Summary Crystalloid volume administer 10 06/21/24 09:46 ENGINEER FIRST ASSISTANT.[email or web address] (ml) Colloids volume administered ( ml) Blood Product volume administered (ml) Total IV fluid infused 10 06/21/24 09:46 ENGINEER FIRST ASSISTANT.[email or web address] Anesthesia Postop Eval I: Summary Notes Anesthesia Complication No 06/21/24 09:46 ENGINEER FIRST ASSISTANT.[email or web address] Anesthesia Complication Comment: Post-operative progress note Anesthesia: Postop Eval II Evaluation Mental status: Awake Pain Level: 0 nausea: No Vomiting: No
== END 2024-06-21 10:37 | disposition home or self-care (01) ==
LOC: EN 07:44 → AC 07:46
PROVIDERS: PCP Internal Medicine; Referring Provider Internal Medicine; Visit Provider Surgery
PROC: 0DJD8ZZ Inspection of Lower Intestinal Tract, Via Natural or Artificial Opening Endoscopic (ICD-10-PCS; CPT 45378; principal; 2024-06-21 08:55)
DX: Z12.11 Encounter for screening for malignant neoplasm of colon (principal); I10 Essential (primary) hypertension; E78.5 Hyperlipidemia, unspecified; Z79.899 Other long term (current) drug therapy; Z79.84 Long term (current) use of oral hypoglycemic drugs; Z80.0 Family history of malignant neoplasm of digestive organs
CPT/HCPCS: 45378; A4216; J2405

== ENCOUNTER → 2024-09-03 | Outpatient (CLI) | payer OTHER, SELFPAY ==
--- NOTE | 2024-09-03 07:08 | BI_ITS ---
EXAM: SCRN MAMM (CAD)W/JESSEE BILAT 09/03/2024 CLINICAL HISTORY: F, Age 54 y/o , SCREENING TECHNIQUE: Bilateral screening digital breast tomosynthesis with 2D and 3D images. Computer aided detection. COMPARISON: Prior exam(s) dated mammograms 06/27/2023, 06/07/2022, 08/10/2021, 07/27/2020; ultrasound 07/11/2023, 06/30/2023; MRI 07/08/2023. FINDINGS: TISSUE DENSITY: The breast tissue is heterogenously dense, which may obscure small masses. The mammogram demonstrates that the patient has dense breasts. Supplemental screening with whole breast ultrasound or MRI may be considered for further evaluation. Bilateral Breast Mammographic Findings: No significant masses, calcifications or other abnormalities are identified. There is a focal asymmetry in the central slightly inner left breast at middle depth, which likely corresponds to the area of fibrocystic change seen the ultrasound of 06/30/2023 and 07/11/2023. Otherwise, the parenchymal pattern is unchanged. There is a retropectoral saline implant in the left breast. BI/SCRN MAMM (CAD)W/JESSEE BILAT IMPRESSION: Right Breast: BIRADS 1 NEGATIVE. Left Breast: BIRADS 2 BENIGN FINDING. OVERALL FINAL ASSESSMENT: BIRADS 2 BENIGN FINDING. RECOMMENDATION: Routine annual follow-up in 1 Year A letter with findings and recommendations will be mailed to the patient. Reading Location: [id number]
== END | disposition home or self-care (01) ==
LOC: OPBI 07:05
PROVIDERS: PCP Internal Medicine; Referring Provider Internal Medicine; Visit Provider Internal Medicine
DX: Z12.31 Encounter for screening mammogram for malignant neoplasm of breast (principal)
CPT/HCPCS: 77063; 77067

== ENCOUNTER → 2024-12-22 | Outpatient (CLI) | payer OTHER, SELFPAY | END | disposition home or self-care (01) | LOC: LABSPEC 12-23 11:34 | PROVIDERS: PCP Internal Medicine; Visit Provider Physician Assistant | DX: R30.0 Dysuria (principal) | CPT/HCPCS: 87077; 87086; 87088; 87186 ==

== ENCOUNTER → 2025-02-21 | Outpatient (CLI) | payer OTHER, SELFPAY ==
[2025-02-21 09:07] LABS: Hematocrit 44.6 % (37-47); Hemoglobin 14.5 g/dL (12.0-15.0); Immature Granulocytes Count 0.030 X10^3/uL (0.0-0.0); Mean Corp Hgb Conc 32.5 g/dL (32-36); Mean Corpuscular Volume 84.0 fL (81-99); Mean Platelet Vol. 9.4 fl (6.2-12.0); NRBC Flagged by Analyzer 0 % (0-5); Platelet Count 301 K/mm3 (150-450); RBC Distribution Width CV 14.0 % (11.6-14.6); RBC Distribution Width SD 42.7 fl (35.1-43.9); Red Blood Count 5.31 M/mm3 (4.2-5.4); White Blood Count 6.8 K/mm3 (4.4-11.0)
[2025-02-21 09:27] LABS: AST(SGOT) 30 U/L (<=31); Alanine Aminotransfer ALT/SGPT 34 U/L (<=34); Albumin, Serum 4.6 g/dL (3.5-5.0); Alkaline Phosphatase 79 U/L (35-104); Anion Gap 11 (5-15); BUN 13 mg/dL (4-19); BUN/Creat Ratio 13.6 RATIO (10-20); Calcium,Total 9.8 mg/dL (7.6-11.0); Carbon Dioxide 23.8 mmol/L (21.0-32.0); Chloride 103 mmol/L (98-108); Cholesterol 125 mg/dL (<=200); Globulin 3.0 g/dL (2.2-4.2); Glucose 102 mg/dL (70-99); Low Density Lipoprotein Calc. 63 mg/dL; Potassium 4.5 mmol/L (3.3-5.1); Triglycerides 70 mg/dL; Very Low Density Lipoprotein 14 mg/dL (5-40); cholesterol:hdl ratio screen 2.63
== END | disposition home or self-care (01) ==
PROVIDERS: PCP Internal Medicine; Referring Provider Internal Medicine; Visit Provider Internal Medicine
DX: E78.5 Hyperlipidemia, unspecified (principal)
CPT/HCPCS: 36415; 80053; 80061; 85025